=== PATIENT | female | born 1950 | race Caucasian/White ===

== ENCOUNTER 2017-07-17 14:13 | Emergency (ER) | payer MEDICARE ==
[2017-07-17] MEDS ORDERED: predniSONE 20 MG TAB ONE (14:32)
--- NOTE | 2017-07-17 15:50 | RAD ---
CHEST TWO VIEWS: 07/17/17 HISTORY: Cough, asthma, high blood pressure. Heart size is enlarged. A large hiatal hernia is noted. Mediastinum is otherwise unremarkable. The lakshmi ngs are clear of infiltrates. IMPRESSION: Cardiomegaly with large hiatal hernia. POS: RYANH
== END 2017-07-17 15:18 | disposition home or self-care (01) ==
LOC: SCSER 14:13
DX: J06.9 Acute upper respiratory infection, unspecified (principal); J45.909 Unspecified asthma, uncomplicated; E03.9 Hypothyroidism, unspecified; I10 Essential (primary) hypertension; Z79.899 Other long term (current) drug therapy; Z79.51 Long term (current) use of inhaled steroids
CPT/HCPCS: 71046; J7506

== ENCOUNTER 2017-09-08 14:55 | Emergency (ER) | payer MEDICARE ==
[2017-09-08 15:35] LABS: #Basophils 0.1 thou/uL (0.0-0.2); #Eosinphils 0.2 thou/uL (0.0-0.7); #Monocytes 0.6 thou/uL (0.11-0.59); #Neutrophils 3.5 thou/uL (1.40-6.50); %Basophils 0.8 % (0.0-1.0); %Eosinophils 2.8 % (0.0-10.0); %Lymphocytes 31.8 % (21.0-51.0); %Monocytes 9.5 % (0.0-10.0); %Neutrophils 55.1 % (42.0-75.0); Hemoglobin 12.4 g/dL (12.0-16.0); Mean Corpuscular HGB CONC 34.9 g/dL (32.0-36.0); Mean Corpuscular Hemoglobin 34.3 pg (27.0-31.0); Mean Corpuscular Volume 98.1 fL (78.0-98.0); Mean Platelet Volume 9.5 fL (7.4-10.4); Platelet Count 211 thou/uL (130-400); RBC Distribution Width 12.9 % (11.5-14.5); Red Blood Cell (RBC) Count 3.62 mill/uL (4.20-5.40); White Blood Cell (WBC) Count 6.4 thou/uL (4.8-10.8)
[2017-09-08 15:57] LABS: ALT (SGPT) 18 U/L (8-55); AST (SGOT) 23 U/L (5-34); Alkaline Phosphatase 125 U/L (40-150); Anion Gap 14 mmol/L (10-20); BUN (Urea Nitrogen) 20 mg/dL (9.8-20.1); Bilirubin, Total 0.3 mg/dL (0.2-1.2); Calc. Creatinine Clearance 0 mL/min (70-130); Calcium 9.2 mg/dL (7.8-10.44); Carbon Dioxide 29 mmol/L (23-31); Chloride 102 mmol/L (98-107); Estimated GFR-MDRD 72; Glucose 82 mg/dL (80-115); Potassium 3.7 mmol/L (3.5-5.1); Sodium 141 mmol/L (136-145)
[2017-09-08 16:12] LABS: Bilirubin Negative (Negative); Blood, Urine Negative (Negative); Clarity CLEAR (Clear); Glucose, Urine (Dipstick) Negative (Negative); Leukocyte Small (Negative); Nitrite Negative (Negative); Protein, Urine (Dipstick) Negative (Neg-Trace); Specific Gravity, Urine 1.016 (1.002-1.036); Urobilinogen 0.2 mg/dL (0.2-1.0); pH, Urine 6.5 (5.0-9.0)
[2017-09-08 16:13] LABS: Bacteria/HPF None Seen HPF (None Seen); Hyaline Casts/LPF 0-3 HYALINE CAST LPF (0-3 Hyaline); Pathc Cast-AUWi Flag 0.29 (0-2.49); Squamous Epithelial None Seen HPF (0-3); WBC/HPF 0-3 HPF (0-3)
== END 2017-09-08 17:29 | disposition home or self-care (01) ==
LOC: ERS 14:55
DX: K92.2 Gastrointestinal hemorrhage, unspecified (principal); E03.9 Hypothyroidism, unspecified; J45.909 Unspecified asthma, uncomplicated; I10 Essential (primary) hypertension; Z79.899 Other long term (current) drug therapy; Z79.891 Long term (current) use of opiate analgesic
CPT/HCPCS: 36415; 80053; 81003; 81015; 82274; 85025; 86850; 86900; 86901

== ENCOUNTER 2017-09-09 07:20 | Inpatient (IN) | payer MEDICARE ==
[2017-09-09 08:03] LABS: #Eosinphils 0.2 thou/uL (0.0-0.7); #Lymphocytes 1.2 thou/uL (1.20-3.40); #Monocytes 0.5 thou/uL (0.11-0.59); #Neutrophils 3.6 thou/uL (1.40-6.50); %Basophils 0.4 % (0.0-1.0); %Eosinophils 3.4 % (0.0-10.0); %Lymphocytes 22.2 % (21.0-51.0); %Monocytes 8.9 % (0.0-10.0); %Neutrophils 65.1 % (42.0-75.0); Hemoglobin 9.9 g/dL (12.0-16.0); Mean Corpuscular HGB CONC 34.3 g/dL (32.0-36.0); Mean Corpuscular Hemoglobin 33.9 pg (27.0-31.0); Mean Corpuscular Volume 98.6 fL (78.0-98.0); Mean Platelet Volume 9.4 fL (7.4-10.4); Platelet Count 189 thou/uL (130-400); RBC Distribution Width 12.9 % (11.5-14.5); Red Blood Cell (RBC) Count 2.91 mill/uL (4.20-5.40); White Blood Cell (WBC) Count 5.6 thou/uL (4.8-10.8)
[2017-09-09 09:55] LABS: PTT 24.6 SEC (22.9-36.1); Prothrombin Time 13.3 SEC (12.0-14.7)
[2017-09-09 10:33] LABS: Potassium 3.4 mmol/L (3.5-5.1); Sodium 140 mmol/L (136-145)
[2017-09-09 10:34] LABS: Albumin 3.5 g/dL (3.4-4.8); Alkaline Phosphatase 97 U/L (40-150); Anion Gap 9 mmol/L (10-20); BUN (Urea Nitrogen) 17 mg/dL (9.8-20.1); Bilirubin, Total 0.4 mg/dL (0.2-1.2); Calc. Creatinine Clearance 0 mL/min (70-130); Calcium 8.4 mg/dL (7.8-10.44); Carbon Dioxide 31 mmol/L (23-31); Chloride 103 mmol/L (98-107); Estimated GFR-MDRD 83; Globulin 2.3 g/dL (2.4-3.5); Glucose 96 mg/dL (80-115); Protein, Total 5.8 g/dL (5.8-8.1)
[2017-09-09 10:35] LABS: ALT (SGPT) 16 U/L (8-55); AST (SGOT) 17 U/L (5-34); Iron 77 ug/dL (50-170); Iron Binding Capacity, Total 238 mcg/dL (265-497)
[2017-09-09] MEDS ORDERED: Senokot 8.6 MG TAB PO PRN (11:10)
[2017-09-09] MEDS ORDERED: Chloraseptic Spray 180 ml Bottle PO PRN (11:10)
[2017-09-09] MEDS ORDERED: Ondansetron HCl/PF 4 MG/2 ML Vial IVP PRN (11:10)
[2017-09-09] MEDS ORDERED: Loperamide HCl 2 MG CAP PO PRN (11:10)
[2017-09-09] MEDS ORDERED: HYDROcodone/Acetaminophen 5/325 mg Tablet PO PRN (11:10)
[2017-09-09] MEDS ORDERED: Ondansetron ODT 4 MG TAB PO PRN (11:10)
[2017-09-09] MEDS ORDERED: Artificial Tears 18 DROP/0.9 ML EA EYE PRN (11:10)
[2017-09-09] MEDS ORDERED: hydrALAZINE 20 MG/ML VIAL SLOW IVP PRN (11:10)
[2017-09-09] MEDS ORDERED: Albuterol Sulfate 2.5 mg/3 ml Neb NEB PRN (11:10)
[2017-09-09] MEDS ORDERED: Loratadine 10 MG TAB PO PRN (11:10)
[2017-09-09] MEDS ORDERED: Zolpidem Tartrate 5 MG TAB PO PRN (11:10)
[2017-09-09] MEDS ORDERED: Mag-Al 1200 mg/1200 mg/30 ML UDCUP PO PRN (11:10)
[2017-09-09] MEDS ORDERED: Sodium Chloride 0.65% Nasal 44 ML BOT EA NARE PRN (11:10)
[2017-09-09] MEDS ORDERED: Diabetic Tussin 200 MG/10 ML UDCUP PO PRN (11:10)
[2017-09-09] MEDS ORDERED: Milk Of Magnesia 30 ML UDCUP PO PRN (11:10)
[2017-09-09] MEDS ORDERED: Eucerin (Mineral Oil/Petrolatum,White) 30 gm Jar TOP PRN (11:10)
--- NOTE | 2017-09-09 11:51 | RAD ---
PORTABLE CHEST 1 VIEW: DATE: 09/09/17. TIME: 9:41 a.m. HISTORY: Abdominal pain, hematochezia, GI bleeding. History of asthma, hypertension. FINDINGS: Comparison is made with the exam of 01/21/11. The heart is enlarged. The lungs are expanded without lobar consolidation, pneumothorax, josé pulmo nary edema, or pleural effusions. IMPRESSION: Cardiomegaly. POS: SHRAVAN
[2017-09-09] MEDS: Sodium Chloride 0.9% 1,000 ML IV SCH ×3 (12:48→20:34)
--- NOTE | 2017-09-09 12:59 | HP ---
PRIMARY CARE PHYSICIAN: Dr. Jossue Oliveira. REASON FOR ADMISSION: Acute lower gastrointestinal bleed and anemia due to acute blood loss, hypotension. HISTORY OF PRESENT ILLNESS: A 67-year-old female who has underlying history of peptic ulcer disease who presented to emergency room with complaint of hematochezia. The patient reports that she had bright red blood per rectum yesterday morning and that is why she came to the emergency room in the afternoon time. She was discharged home. The patient reports that yesterday morning she was having bright red blood per rectum. She did not have any associated abdominal pain. She did not have any nausea, vomiting, or hematemesis. She did not have any black tarry stool. She had several times scant amount of blood through the wiping. Yesterday when she came to emergency room in afternoon time, she was hemodynamically stable. She had blood test done and her hemoglobin was 12.4 and she was discharged home and advised to make appointment with Dr. Le today. The patient was having ongoing hematochezia during night time. This morning, she was feeling dizzy and weak and that is why she was not able to make appointment with GI, but decided to come to the emergency room for evaluation. Today in the emergency room, her hemoglobin dropped to 9.9 and subsequently 9. Her blood pressure was also on lower side. She was feeling weak and that is why we decided to admit this patient in hospital. She denies any weight loss. She denies any fever or chills. She denies any antibiotic exposure. She had similar rectal bleed 10 years ago, at that time colonoscopy was normal. The patient does have history of chronic migraine type of headache and she is taking Excedrin every day basis. For the last couple of days, she also took Mobic for a couple of days. She denies any epigastric pain. She denies any nausea or vomiting. She did not have any syncope. She did not have any chest pain or palpitations. REVIEW OF SYSTEMS: Please see my HPI for pertinent positive and negative. All other review of system reviewed and negative except as mentioned in the HPI. Constitutional: Weight loss or gain, ability to conduct usual activities. Skin: Rash, itching. Eyes: Double vision, pain. ENT/Mouth: Nose bleeding, neck stiffness, pain, tenderness. Cardiovascular: Palpitations, dyspnea on exertion, orthopnea. Respiratory: Shortness of breath, wheezing, cough, hemoptysis, fever or night sweats. Gastrointestinal: Poor appetite, abdominal pain, heartburn, nausea, vomiting, constipation, or diarrhea. Genitourinary: Urgency, frequency, dysuria, nocturia. Musculoskeletal: Pain, swelling. Neurologic/Psychiatric: Anxiety, depression. Allergy/Immunologic: Skin rash, bleeding tendency. PAST MEDICAL HISTORY: Hypothyroidism, hypertension, mild intermittent asthma, obesity. PAST PSYCHIATRIC HISTORY: Anxiety and depression. PAST SURGICAL HISTORY: Bilateral knee replacement, left hip replacement, breast biopsy, hernia repair with mesh in 2001, cholecystectomy, colonoscopy 10 years ago. SOCIAL HISTORY: The patient is living at home with family. No history of tobacco, alcohol or illicit drug abuse. FAMILY HISTORY: Positive for heart disease among several family members, but no family history of colon cancer, stroke, other type of cancer. ALLERGIES: No known drug allergy. CURRENT HOME MEDICATIONS: Synthroid 100 mcg p.o. daily, lisinopril 20 mg p.o. b.i.d., hydrochlorothiazide 25 mg p.o. daily, Lasix 20 mg twice daily, Prozac 20 mg p.o. daily, amitriptyline 50 mg p.o. daily, Klor-Con 10 mEq p.o. daily, Advair 1 inhalation b.i.d., Ventolin 2 puffs inhalation b.i.d., Protonix 40 mg p.o. daily. EMERGENCY ROOM COURSE: The patient has received IV fluid. PHYSICAL EXAMINATION: VITAL SIGNS: On arrival, blood pressure lowest 97/45, pulse 80, respiratory rate 13, temperature 98.2, saturation 95% on room air, weight 108.8 kilograms. GENERAL: The patient is currently alert, awake, no obvious acute distress. HEAD: Normocephalic, atraumatic. EYES: Pupils round, reactive to light. Extraocular muscle intact. ENT: Oropharynx within normal limits. Moist mucous membranes. No oral lesion , no pharyngeal erythema, no exudate. NECK: Supple, no JVD, no thyromegaly, no carotid bruit. LUNGS: Clear to auscultation without any rhonchi or rales. CARDIAC: S1, S2 regular without any murmur. ABDOMEN: The patient does not have any epigastric tenderness, no peritoneal sign, no guarding, no rigidity, no rebound, no suprapubic tenderness. RECTAL: Examination done in the emergency room showed guaiac positive stool. BACK: Unremarkable. No CVA tenderness. EXTREMITIES: Upper extremity: Passive movement of all joints are normal. Lower extremity: No edema. Good peripheral pulsation. SKIN: No skin rash. HEMATOLOGICAL: No lymphadenopathy. PSYCHIATRIC: Normal affect. NEUROLOGIC: The patient is alert, oriented x3. Cranial nerves II-XII intact. Motor and sensation within normal limits. No focal neurological deficit noted. SIGNIFICANT LABORATORY DATA: EKG showing normal sinus rhythm, occasional premature ventricular complexes noted. Chest x-ray based on my review, no acute cardiopulmonary process. CBC: WBC 5.6, hemoglobin 9.9 which is dropped from 12.4 yesterday and subsequently hemoglobin 9.0. INR 1.0. BMP: Sodium 140 , potassium 3.4, chloride 103, carbon dioxide 31, anion gap 9, BUN 17, creatinine 0.70, glucose 96, calcium 8.4. LFT: AST 17, ALT 16, alkaline phosphatase 97, albumin 3.5. Iron 77, TIBC 238, ferritin 27.90. ASSESSMENT AND PLAN: 1. Acute gastrointestinal bleed. The patient has bright red blood per rectum with maroon color blood suspecting lower gastrointestinal bleed. She has painless bleeding and that is why we are suspecting diverticular bleed. Her bleeding almost stopped at this point, but she is still hypotensive and her hemoglobin dropped 3 grams from yesterday. She is relatively hypotensive. Normally, she sees her blood pressure runs in 150s, but currently running in 100s. We are also suspecting peptic ulcer disease possible duodenal ulcer bleeding given the patient on chronic use of Excedrin as well as recent use of Mobic. This patient may need upper and lower endoscopy for further evaluation. We will consult telephone lineworker. We will treat her with Protonix 40 mg IV twice daily IV fluid for relative hypotension. We will only give her clear liquid diet today. If the colonoscopy is planned, then the patient will need colon preparation today and possibly procedure tomorrow. This patient does not have any epigastric abdominal pain and she does not have any nausea or vomiting , so suspicious for upper GI bleed is also very little. We will monitor H&H while in hospital. We will keep as a full admission. If her hemoglobin drops below 8, then we will consider transfusion. 2. Anemia due to acute blood loss. We will monitor H&H and as mentioned above , if the patient is hypotensive and her hemoglobin is less than 8, then we will consider blood transfusion as patient is mildly symptomatic. 3. Hypotension, likely due to blood loss from gastrointestinal bleed. We will continue with IV fluid. We will monitor closely. If her blood pressure remains low, then either she will need volume replacement aggressively versus blood product versus transferred to telemetry/IMCU for close monitoring. 4. Hypothyroidism. We will continue Synthroid 100 mcg p.o. daily. 5. Hypokalemia. We will replace potassium chloride 20 mEq IV one-time dose. 6. Anxiety and depression. We will continue Prozac 20 mg p.o. daily, amitriptyline 50 mg p.o. at bedtime. 7. Asthma without any exacerbation. Continue Ventolin nebulization q.6 hourly p.r.n., Dulera 1 puff inhalation b.i.d. 8. Gastroesophageal reflux disease, hiatal hernia with a history of peptic ulcer disease. We are giving her Protonix 40 mg IV b.i.d. 9. Hypertension history, but currently low blood pressure that is why we will hold on antihypertensive medication for now. 10. Deep venous thrombosis prophylaxis. No Lovenox because of bleeding. 11. Gastrointestinal prophylaxis. The patient is already on Protonix therapy. 12. Code status: The patient is FULL CODE. The patient does not have any surrogate decision maker. Disposition plan based on clinical course. We are expecting patient's stay in hospital more than 2 midnights. Plan of care discussed with the patient in detail. LUPILLOD
[2017-09-09] MEDS ORDERED: Potassium Chloride 10 MEQ/100 ML PREMIX BAG IVPB SCH (13:00)
[2017-09-09 13:18] VITALS: BMI 38.7
[2017-09-09 17:48] LABS: Hemoglobin 9.6 g/dL (12.0-16.0)
[2017-09-09] MEDS: Mometasone/Formoterol 120 PUFF INHALER INH SCH (18:40)
[2017-09-09] MEDS ORDERED: GoLYTELY 4,000 ml Bottle PO SCH (20:00)
[2017-09-09] MEDS: Fish Oil 1,000 MG CAP PO SCH (20:34)
[2017-09-09] MEDS: Potassium Chloride 20 MEQ TAB PO SCH (20:34)
[2017-09-09] MEDS: Amitriptyline HCl 25 MG TAB PO SCH (20:35)
[2017-09-09] MEDS: Pantoprazole 40 MG VIAL IVP SCH (20:35)
[2017-09-09] MEDS: Levothyroxine Sodium 100 MCG TAB PO SCH (20:38)
[2017-09-09] MEDS ORDERED: Non-Formulary Item 1 EACH (Amitriptyline Hcl [Elavil] 50 MG) PO SCH (21:00)
--- NOTE | 2017-09-10 04:33 | CON ---
DATE OF SERVICE: 09/09/2017 REASON FOR CONSULTATION: GI bleeding. HISTORY OF PRESENT ILLNESS: Ms. Cowan is a pleasant 67-year-old female who [facility]. She actually came to the hospital yesterday after she had about 2-3 episode s of rectal bleeding at home. She notes that these were red and sometimes maroon, a little bit of cl ot. In the emergency room apparently her vital signs were stable and her hemoglobin was 12.4. Her b aseline is between 13 and 12 from April of this year and August of last year, respectively. Her BUN an d creatinine yesterday were 20 and 0.7. She was discharged home to follow up with PCP and referred t o see Dr. Campos Le who was clinical services consultant yesterday. However, this morning, she woke up and had a bloody stool again and felt weak and came to the emergency room. In the emergency room today, her hemoglobi n was 9 and her blood pressure was 101/50 and pulse was 70. Rectal examination revealed some dark re d blood in her stool. Therefore, at this time, they decide to go ahead and admit her. Presently sta aguilar she has only had 2 stools today, both of which were maroonish red to dark. Her and her d iffer on whether it was black or not, but it seems that they settle on more of a maroon color. She h as had no associated pain with this. She said she had an episode of bleeding about 10 years ago with bright red blood per rectum. She had a colonoscopy done, which was normal and she states she had a colonoscopy may be 5 years ago at [facility], which was normal. She has had no nausea or vomiti ng. She does use Meloxicam and used few last week; however, she is on Protonix daily and has been fo r several years. REVIEW OF SYSTEMS: Negative for syncope, dizziness, passing out. Neurologic: Negative. Skin: No rashes or itching. Eyes: No double vision or change. ENT: No nosebleeds. No dysphagia or odynoph agia or throat pain. Cardiovascular: No palpitations, dyspnea on exertion, orthopnea or dyspnea. R espiratory: No shortness of breath, coughing. Gastrointestinal: Poor appetite. Otherwise review o f systems per HPI. : Negative urinary frequency, or urgency. Musculoskeletal: No pain, swelling . Neurologic: No anxiety, depression, headaches. ALLERGIES: None. PAST MEDICAL HISTORY: Hypothyroidism, hypertension, mild intermittent asthma, obesity. PSYCHIATRIC HISTORY: Anxiety and depression. PAST SURGICAL HISTORY: Bilateral knee replacement, left hip replacement, ankle surgery, breast biops y, benign few years ago, hernia mesh repair in abdomen, cholecystectomy with appendectomy several yea rs ago, colonoscopy 10 years ago and 5 years ago. SOCIAL HISTORY: Patient lives at home with family. Her is at the bedside. She does not smo ke, drink or use drugs. FAMILY HISTORY: Negative for colorectal cancer or liver disease. ALLERGIES: None known. MEDICATIONS: Synthroid 100 mcg daily, lisinopril (05:12) mg b.i.d., hydrochlorothiazide 25 mg d aily, Lasix 20 mg b.i.d., Prozac 20 mg daily, amitriptyline 50 mg daily, Klor-Con 10 mEq daily, Advai r b.i.d., Ventolin b.i.d., Protonix 40 mg p.o. daily. PRESENT MEDICATIONS: Tylenol, Maalox, Ventolin, Elavil, vitamin C, iron, fish oil, fluoxetine, guaif enesin, hydralazine, hydrocodone, levothyroxine, loperamide p.r.n., magnesium hydroxide p.r.n., torres l saline 100 an hour, Protonix 40 IV q.12. PHYSICAL EXAMINATION: GENERAL: Patient is resting comfortably in bed. She is in no distress. VITAL SIGNS: Temperature is 98.7, pulse 80, blood pressure 133/57. LUNGS: Clear. HEENT: Oropharynx without lesions. GENERAL: She is alert and oriented to person, place and time. She is in no distress. HEENT: Conjunctiva and sclerae clear. Oropharynx without lesions. NECK: Supple, without adenopathy. No adenopathy in the anterior cervical lymph node chains or in t he supraclavicular spaces. LUNGS: Clear to auscultation. Good breath sounds. HEART: Regular rate and rhythm without murmurs. ABDOMEN: Soft, nontender, without rebound or guarding. There is no borborygmi. RECTAL: Reveals some old maroon stool, which seems to be solidifying. There are no clots or fresh r ed blood. There is no melena. EXTREMITIES: No clubbing, cyanosis or edema. There are scars over the knees. LABORATORY DATA: Sodium 140, potassium 3.4, BUN and creatinine are 17 and 0.7. Iron was 230 on admi ssion. Ferritin was 27, AST and ALT are 17 and 19, protein was 5.8, albumin 3.5. B12 was 76 on 05/31 016. TSH was 28 on 08/17/2017. Chest x-ray showed mild cardiomegaly. ASSESSMENT: Gastrointestinal bleeding. This seems to be lower. She has been using some NSAID, so t his must be a risk factor for bleeding which she has been on a PPI, which should give her prophylaxis for gastric ulcers any way or in even duodenal ulcers. I suspect this may be a colonic bleeding div erticular would be fit with her age group, but she states that she did not have any diverticula on pr evious colonoscopies. PLAN: 1. Continue serial H&Hs. 2. Continue IV fluids. 3. Bowel prep this evening for a colonoscopy with EGD tomorrow for GI bleeding with significant sign s of hemorrhage and hemodynamic instability on admission. If she drops hemoglobin lower than 8, she will need transfusion: 4. We will stop oral iron. This will interfere with her bowel prep, make colonoscopy visualization difficult.
[2017-09-10 05:49] LABS: #Eosinphils 0.1 thou/uL (0.0-0.7); #Lymphocytes 2.1 thou/uL (1.20-3.40); #Monocytes 0.5 thou/uL (0.11-0.59); %Basophils 0.7 % (0.0-1.0); %Eosinophils 2.1 % (0.0-10.0); %Lymphocytes 36.7 % (21.0-51.0); %Neutrophils 51.6 % (42.0-75.0); Hemoglobin 8.8 g/dL (12.0-16.0); Mean Corpuscular HGB CONC 34.1 g/dL (32.0-36.0); Mean Corpuscular Hemoglobin 33.7 pg (27.0-31.0); Mean Corpuscular Volume 98.8 fL (78.0-98.0); Mean Platelet Volume 9.6 fL (7.4-10.4); Platelet Count 195 thou/uL (130-400); Red Blood Cell (RBC) Count 2.61 mill/uL (4.20-5.40); White Blood Cell (WBC) Count 5.8 thou/uL (4.8-10.8)
[2017-09-10 05:57] LABS: Anion Gap 8 mmol/L (10-20); BUN (Urea Nitrogen) 8 mg/dL (9.8-20.1); Calc. Creatinine Clearance 157 mL/min (70-130); Calcium 8.3 mg/dL (7.8-10.44); Carbon Dioxide 31 mmol/L (23-31); Chloride 106 mmol/L (98-107); Estimated GFR-MDRD Greater than 90; Glucose 103 mg/dL (80-115); Potassium 3.4 mmol/L (3.5-5.1); Sodium 142 mmol/L (136-145)
[2017-09-10] MEDS: Mometasone/Formoterol 120 PUFF INHALER INH SCH ×2 (06:28→17:56)
[2017-09-10] MEDS: Potassium Chloride 10 MEQ TAB PO SCH (08:00)
[2017-09-10] MEDS ORDERED: Potassium Chloride 20 MEQ in Premix Bag 1 BAG IVPB SCH (08:00)
[2017-09-10] MEDS ORDERED: Non-Formulary Item 1 EACH (Ferrous Sulfate [Iron] 325 MG) PO SCH (09:00)
[2017-09-10] MEDS ORDERED: Non-Formulary Item 1 EACH (Multivitamin [Multivitamins] 1 CAP) PO SCH (09:00)
[2017-09-10] MEDS ORDERED: Pantoprazole 40 MG VIAL IVP SCH (09:00)
[2017-09-10] MEDS: Ascorbic Acid 500 mg Chewable Tablet PO SCH (09:00)
[2017-09-10] MEDS: Multivit, Therapeutic 1 TAB PO SCH (09:00)
[2017-09-10] MEDS: FLUoxetine HCl 20 MG/5 ML UDCUP PO SCH (09:00)
[2017-09-10] MEDS ORDERED: CALCIUM CITRATE 1000 MG PO SCH (09:00)
[2017-09-10] MEDS ORDERED: Ferrous Sulfate 325 MG TAB PO SCH (09:00)
[2017-09-10] MEDS: Calcium Citrate 950 MG TAB PO SCH (09:00)
[2017-09-10] MEDS: Potassium Chloride 20 MEQ TAB PO SCH ×2 (09:00→22:38)
--- NOTE | 2017-09-10 09:43 | PDOC.PN ---
- Subjective Encounter Start Date: 09/10/17 Encounter Start Time: 07:00 -: old records requested/rev pt is getting preparation for colonoscopy, no further bleeding, no epigastric pain - Objective MAR Reviewed: Yes Vital Signs & Weight: Vital Signs (12 hours) Temp Pulse Resp BP Pulse Ox 09/10/17 07:23 98.1 F 77 18 143/66 H 97 09/10/17 04:00 98.6 F 72 18 117/66 95 09/10/17 00:00 98.2 F 89 20 125/70 96 I&O: 09/09/17 09/10/17 09/11/17 06:59 06:59 06:59 Intake Total 3640 Balance 3640 Result Diagrams: 09/10/17 05:21 09/10/17 05:21 Phys Exam - Physical Examination Constitutional: NAD HEENT: PERRLA, moist MMs, sclera anicteric Neck: no JVD, supple Respiratory: no wheezing, no rales, no rhonchi Cardiovascular: RRR, no significant murmur, no rub Gastrointestinal: soft, non-tender, no distention, positive bowel sounds Musculoskeletal: no edema, pulses present Neurological: non-focal, normal sensation, moves all 4 limbs Lymphatic: no nodes Psychiatric: normal affect, A&O x 3 Skin: no rash, normal turgor Dx/Plan (1) Acute GI bleeding Code(s): K92.2 - GASTROINTESTINAL HEMORRHAGE, UNSPECIFIED Status: Acute (2) Anemia due to acute blood loss Code(s): D62 - ACUTE POSTHEMORRHAGIC ANEMIA Status: Acute (3) Hypokalemia Code(s): E87.6 - HYPOKALEMIA Status: Acute (4) Hypotension Status: Acute (5) Anxiety and depression Code(s): F41.9 - ANXIETY DISORDER, UNSPECIFIED; F32.9 - MAJOR DEPRESSIVE DISORDER, SINGLE EPISODE, UNSPECIFIED Status: Chronic (6) Asthma Code(s): J45.909 - UNSPECIFIED ASTHMA, UNCOMPLICATED Status: Chronic (7) Hiatal hernia Code(s): K44.9 - DIAPHRAGMATIC HERNIA WITHOUT OBSTRUCTION OR GANGRENE Status: Chronic (8) Hypertension Code(s): I10 - ESSENTIAL (PRIMARY) HYPERTENSION Status: Chronic (9) Hypothyroidism Code(s): E03.9 - HYPOTHYROIDISM, UNSPECIFIED Status: Chronic (10) VAL on CPAP Code(s): G47.33 - OBSTRUCTIVE SLEEP APNEA (ADULT) (PEDIATRIC); Z99.89 - DEPENDENCE ON OTHER ENABLING MACHINES AND DEVICES Status: Chronic (11) Obesity (BMI 30-39.9) Code(s): E66.9 - OBESITY, UNSPECIFIED Status: Chronic (12) Osteoarthritis Code(s): M19.90 - UNSPECIFIED OSTEOARTHRITIS, UNSPECIFIED SITE Status: Chronic (13) PUD (peptic ulcer disease) Code(s): K27.9 - PEPTIC ULC, SITE UNSP, UNSP AC OR CHR, W/O HEMOR OR PERF Status: Chronic - Plan cont current plan of care * today plan for EGD and colonoscopy * medication reviewed as below * symptomatic treatment * repeat labs tomorrow * dc ivf after procedure * start diet after procedure * replace potassium. Review of Systems - Review of Systems Constitutional: negative: fever, chills, sweats, weakness, malaise, other ENT: negative: Ear Pain, Ear Discharge, Nose Pain, Nose Discharge, Nose Congestion, Mouth Pain, Mouth Swelling, Throat Pain, Throat Swelling, Other Respiratory: negative: Cough, Dry, Shortness of Breath, Hemoptysis, SOB with Excertion, Pleuritic Pain, Sputum, Wheezing Cardiovascular: negative: chest pain, palpitations, orthopnea, paroxysmal nocturnal dyspnea, edema, light headedness, other Gastrointestinal: negative: Nausea, Vomiting, Abdominal Pain, Diarrhea, Constipation, Melena, Hematochezia, Other Genitourinary: negative: Dysuria, Frequency, Incontinence, Hematuria, Retention , Other Musculoskeletal: negative: Neck Pain, Shoulder Pain, Arm Pain, Back Pain, Hand Pain, Leg Pain, Foot Pain, Other Skin: negative: Rash, Lesions, Yusef, Bruising, Other - Medications/Allergies Allergies/Adverse Reactions: Allergies Allergy/AdvReac Type Severity Reaction Status Date / Time No Known Allergies Allergy Verified 03/13/15 09:24 Medications: Current Medications Acetaminophen (Tylenol) 650 mg PO Q4H PRN PRN Reason: Headache/Fever or Pain Hydrocodone Bitart/Acetaminophen (Onia 5/325) 1 tab PO Q4H PRN PRN Reason: Moderate Pain (4-6) Al Hydroxide/Mg Hydroxide (Maalox) 30 ml PO Q6H PRN PRN Reason: Heartburn or Indigestion Albuterol Sulfate (Ventolin) 2.5 mg NEB [id number] PRN PRN Reason: Wheezing Amitriptyline HCl (Elavil) 50 mg PO [facility] Last Admin: 09/09/17 20:35 Dose: 50 mg Artificial Tears (Tears Naturale) 0 drop EA EYE PRN PRN PRN Reason: Dry Eyes Ascorbic Acid (Vitamin C) 500 mg PO DAILY [facility] Calcium Citrate (Calcium Citrate) 950 mg PO DAILY [facility] Fish Oil (Fish Oil) 1,000 mg PO [facility] Last Admin: 09/09/17 20:34 Dose: 1,000 mg Fluoxetine HCl (Prozac Oral Soln) 20 mg PO DAILY [facility] Guaifenesin (Robitussin Sf) 200 mg PO Q4H PRN PRN Reason: Cough Hydralazine HCl (Apresoline) 10 mg SLOW IVP Q4H PRN PRN Reason: Systolic BP > 180 Sodium Chloride (Normal Saline 0.9%) 1,000 mls @ 100 mls/hr IV .Q10H [facility] Last Admin: 09/09/17 20:34 Dose: 1,000 mls Potassium Chloride 20 meq/ (Device) 100 mls @ 50 mls/hr IVPB 0800 [facility] Stop: 09/10/17 09:59 Last Admin: 09/10/17 09:05 Dose: 100 mls Levothyroxine Sodium (Synthroid) 100 mcg PO 0600 [facility] Last Admin: 09/09/17 20:38 Dose: 100 mcg Loperamide HCl (Imodium) 2 mg PO PRN PRN PRN Reason: Diarrhea/Loose Stools Loratadine (Claritin) 10 mg PO DAILYPRN PRN PRN Reason: Sinus Symptoms Magnesium Hydroxide (Milk Of Magnesium) 30 ml PO DAILYPRN PRN PRN Reason: Constipation Mineral Oil/White Petrolatum (Eucerin Cream) 0 gm TOP BIDPRN PRN PRN Reason: Dry Skin Mometasone Furoate/Formoterol Fumar (Dulera 100 Mcg/5 Mcg Inhaler) 1 puff INH BID-RT [facility] Last Admin: 09/10/17 06:28 Dose: 1 puff Multivitamins (Theragran) 1 tab PO DAILY [facility] Ondansetron HCl (Zofran Odt) 4 mg PO Q6H PRN PRN Reason: Nausea/Vomiting Ondansetron HCl (Zofran) 4 mg IVP Q6H PRN PRN Reason: Nausea/Vomiting Pantoprazole Sodium (Protonix) 40 mg IVP Q12HR [facility] Last Admin: 09/09/17 20:35 Dose: 40 mg Phenol (Chloraseptic [place] 180 Ml Bot) 0 ml PO PRN PRN PRN Reason: Sore Throat Polyethylene Glycol/Electrolytes (Golytely) 4,000 ml PO ONE [facility] Stop: 09/10/17 20:01 Potassium Chloride (Klor-Con 10) 10 meq PO QAM-WM [facility] Potassium Chloride (K-Dur) 20 meq PO BID [facility] Last Admin: 09/09/17 20:34 Dose: 20 meq Senna (Senokot) 2 tab PO HSPRN PRN PRN Reason: Constipation Sodium Chloride ([place] Nasal [place] 0.65%) 0 ml EA NARE QIDPRN PRN PRN Reason: Nasal Congestion Sodium Chloride (Flush - Normal Saline) 10 ml IVF Q12HR [facility] Last Admin: 09/10/17 09:06 Dose: 10 ml Sodium Chloride (Flush - Normal Saline) 10 ml IVF PRN PRN PRN Reason: Saline Flush Sodium Chloride (Flush - Normal Saline) 10 ml IVF PRN PRN PRN Reason: Saline Flush Sodium Chloride (Flush - Normal Saline) 10 ml IVF PRN PRN PRN Reason: Saline Flush Zolpidem Tartrate (Ambien) 5 mg PO HSPRN PRN PRN Reason: Insomnia
[2017-09-10] MEDS: Pantoprazole 40 MG VIAL IVP SCH ×2 (09:56→22:39)
[2017-09-10] MEDS ORDERED: Ondansetron HCl/PF 4 MG/2 ML Vial IVP PRN (11:36)
[2017-09-10] MEDS ORDERED: Promethazine HCl 25 MG/ML VIAL IM PRN (11:36)
[2017-09-10] MEDS ORDERED: Morphine Sulfate 2 MG/ML SYRINGE SLOW IVP PRN (11:36)
[2017-09-10] MEDS ORDERED: Promethazine HCl 25 MG/ML VIAL SLOW IVP PRN (11:36)
[2017-09-10] MEDS ORDERED: Lidocaine 1% PF 5 ML VIAL ONE (14:14)
[2017-09-10] MEDS ORDERED: PROPOFOL 200 MG/20 ML VIAL ONE (14:14)
[2017-09-10] MEDS: Sodium Chloride 0.9% 1,000 ML IV SCH (15:22)
--- NOTE | 2017-09-10 19:19 | OP ---
DATE OF PROCEDURE: 09/10/2017 PREOPERATIVE DIAGNOSES: 1. Gastrointestinal bleed of unclear etiology. 2. Drop in hemoglobin from baseline of 12 and 13, down to 8.8, red to maroon bleeding. POSTOPERATIVE DIAGNOSES: 1. 7 cm hiatal hernia, sliding. No Cedric's ulcerations, erosions from bleeding site. Other saavedra, normal esophagogastroduodenoscopy. 2. Colonoscopy notable for diffuse diverticulosis coli throughout the colon with no active bleeding identified or old blood in the colon. 3. Bleeding was likely diverticular in nature, resolved. RECOMMENDATIONS: 1. Full liquid diet. If patient tolerates the diet, can advance to regular diet, low residue tomorr ow and if no bleeding, discharge her tomorrow. 2. Avoid NSAIDs. ANESTHESIA: TIVA. PROCEDURE IN DETAIL: After the patient informed the risks, benefits, possible complications of endos copy including perforation, bleeding, reactions to medication and aspiration, informed consent was ob tained. The patient was brought to endoscopy suite where she was sedated in a usual fashion. Once s he was comfortable, a bite block was placed in the incisor orifice. The endoscope was advanced throu gh the esophagus, stomach and second and third portion of duodenum and slowly removed. There was goo d visualization of mucosa. There is no evidence of bleeding sites identified. There was no old bloo d or coffee-ground like material in the stomach. There was a similar large hiatal hernia with hiatus at 40 cm in the proximal aspect of the gastric folds at about 32 cm. There is no evidence of Felix n's ulcers, erosions in this. The antrum was normal. Incisura was normal. Greater and lesser curve s was normal. The esophagus was otherwise normal. The scope was removed. The patient was turned in the room and a rectal examination was performed. There are no signs of ble eding. The endoscope was advanced in the anal canal, through the colon to the cecum which was identi fied by ileocecal valve and appendiceal orifice. The ileum was entered and found to be normal, just clear bile coming down. The remainder of the colon was normal except for diverticulosis scattered th roughout the colon. There were no active bleeding sites or inflamed diverticula noted. Retroflexed views in the rectum were normal. The scope was returned to forward position and removed.
[2017-09-10] MEDS: Fish Oil 1,000 MG CAP PO SCH (22:38)
[2017-09-10] MEDS: Amitriptyline HCl 25 MG TAB PO SCH (22:39)
[2017-09-11 04:29] LABS: #Basophils 0.1 thou/uL (0.0-0.2); #Eosinphils 0.2 thou/uL (0.0-0.7); #Lymphocytes 2.3 thou/uL (1.20-3.40); #Monocytes 0.6 thou/uL (0.11-0.59); #Neutrophils 2.4 thou/uL (1.40-6.50); %Basophils 1.1 % (0.0-1.0); %Eosinophils 2.9 % (0.0-10.0); %Lymphocytes 41.7 % (21.0-51.0); %Monocytes 10.3 % (0.0-10.0); Hemoglobin 6.9 g/dL (12.0-16.0); Mean Corpuscular HGB CONC 35.7 g/dL (32.0-36.0); Mean Corpuscular Hemoglobin 35.4 pg (27.0-31.0); Mean Corpuscular Volume 99.2 fL (78.0-98.0); Platelet Count 157 thou/uL (130-400); Red Blood Cell (RBC) Count 1.94 mill/uL (4.20-5.40); White Blood Cell (WBC) Count 5.5 thou/uL (4.8-10.8)
[2017-09-11 04:32] LABS: Anion Gap 7 mmol/L (10-20); BUN (Urea Nitrogen) 6 mg/dL (9.8-20.1); Calc. Creatinine Clearance 157 mL/min (70-130); Calcium 7.4 mg/dL (7.8-10.44); Carbon Dioxide 29 mmol/L (23-31); Chloride 110 mmol/L (98-107); Estimated GFR-MDRD Greater than 90; Glucose 87 mg/dL (80-115); Sodium 143 mmol/L (136-145)
[2017-09-11 04:37] LABS: Potassium 2.9 mmol/L (3.5-5.1)
[2017-09-11] MEDS ORDERED: Potassium Chloride 20 MEQ TAB PO SCH (06:15)
[2017-09-11] MEDS ORDERED: Potassium Chloride 20 MEQ in Premix Bag 1 BAG IVPB SCH (06:30)
[2017-09-11 06:31] LABS: Magnesium 1.8 mg/dL (1.6-2.6); Phosphorus 3.1 mg/dL (2.3-4.7)
[2017-09-11] MEDS: Acetaminophen 325 MG TAB PO PRN (08:35)
[2017-09-11] MEDS: Levothyroxine Sodium 100 MCG TAB PO SCH (08:36)
[2017-09-11] MEDS: Potassium Chloride 10 MEQ TAB PO SCH (08:48)
[2017-09-11] MEDS: Multivit, Therapeutic 1 TAB PO SCH (08:48)
[2017-09-11] MEDS: Ascorbic Acid 500 mg Chewable Tablet PO SCH (08:49)
[2017-09-11] MEDS: Pantoprazole 40 MG VIAL IVP SCH ×2 (08:49→21:55)
[2017-09-11] MEDS: Potassium Chloride 20 MEQ TAB PO SCH ×2 (08:49→21:56)
[2017-09-11] MEDS: Mometasone/Formoterol 120 PUFF INHALER INH SCH ×2 (08:50→18:49)
[2017-09-11] MEDS: FLUoxetine HCl 20 MG/5 ML UDCUP PO SCH (08:51)
--- NOTE | 2017-09-11 10:03 | PDOC.PN ---
- Subjective Encounter Start Date: 09/11/17 Encounter Start Time: 07:00 last night she had bleeding again, her H & H dropped, no chest pain, no dizziness - Objective MAR Reviewed: Yes Vital Signs & Weight: Vital Signs (12 hours) Temp Pulse Resp BP Pulse Ox 09/11/17 08:50 75 12 09/11/17 07:52 98.1 F 75 18 132/65 94 L 09/11/17 00:00 98.3 F 89 18 149/69 H 96 I&O: 09/10/17 09/11/17 09/12/17 06:59 06:59 06:59 Intake Total 3640 1680 Balance 3640 1680 Result Diagrams: 09/11/17 03:51 09/11/17 03:51 Phys Exam - Physical Examination Constitutional: NAD HEENT: PERRLA, moist MMs, sclera anicteric Neck: no JVD, supple Respiratory: no wheezing, no rales, no rhonchi Cardiovascular: RRR, no significant murmur, no rub Gastrointestinal: soft, non-tender, no distention, positive bowel sounds Musculoskeletal: no edema, pulses present Neurological: non-focal, normal sensation, moves all 4 limbs Lymphatic: no nodes Psychiatric: normal affect, A&O x 3 Skin: no rash, normal turgor Dx/Plan (1) Acute GI bleeding Code(s): K92.2 - GASTROINTESTINAL HEMORRHAGE, UNSPECIFIED Status: Acute (2) Anemia due to acute blood loss Code(s): D62 - ACUTE POSTHEMORRHAGIC ANEMIA Status: Acute (3) Hypokalemia Code(s): E87.6 - HYPOKALEMIA Status: Acute (4) Hypotension Status: Acute (5) Anxiety and depression Code(s): F41.9 - ANXIETY DISORDER, UNSPECIFIED; F32.9 - MAJOR DEPRESSIVE DISORDER, SINGLE EPISODE, UNSPECIFIED Status: Chronic (6) Asthma Code(s): J45.909 - UNSPECIFIED ASTHMA, UNCOMPLICATED Status: Chronic (7) Hiatal hernia Code(s): K44.9 - DIAPHRAGMATIC HERNIA WITHOUT OBSTRUCTION OR GANGRENE Status: Chronic (8) Hypertension Code(s): I10 - ESSENTIAL (PRIMARY) HYPERTENSION Status: Chronic (9) Hypothyroidism Code(s): E03.9 - HYPOTHYROIDISM, UNSPECIFIED Status: Chronic (10) VAL on CPAP Code(s): G47.33 - OBSTRUCTIVE SLEEP APNEA (ADULT) (PEDIATRIC); Z99.89 - DEPENDENCE ON OTHER ENABLING MACHINES AND DEVICES Status: Chronic (11) Obesity (BMI 30-39.9) Code(s): E66.9 - OBESITY, UNSPECIFIED Status: Chronic (12) Osteoarthritis Code(s): M19.90 - UNSPECIFIED OSTEOARTHRITIS, UNSPECIFIED SITE Status: Chronic (13) PUD (peptic ulcer disease) Code(s): K27.9 - PEPTIC ULC, SITE UNSP, UNSP AC OR CHR, W/O HEMOR OR PERF Status: Chronic - Plan cont current plan of care, plan discussed w/ family * replace potassium * transfuse 2 unit PRBC * RBC tagged scan * discussed with * continue clear liquid * repeat labs tomorrow Review of Systems - Review of Systems Eyes: negative: Pain, Vision Change, Conjunctivae Inflammation, Eyelid Inflammation, Redness, Other ENT: negative: Ear Pain, Ear Discharge, Nose Pain, Nose Discharge, Nose Congestion, Mouth Pain, Mouth Swelling, Throat Pain, Throat Swelling, Other Respiratory: negative: Cough, Dry, Shortness of Breath, Hemoptysis, SOB with Excertion, Pleuritic Pain, Sputum, Wheezing Cardiovascular: negative: chest pain, palpitations, orthopnea, paroxysmal nocturnal dyspnea, edema, light headedness, other Gastrointestinal: Hematochezia. negative: Nausea, Vomiting, Abdominal Pain, Diarrhea, Constipation, Melena, Other Genitourinary: negative: Dysuria, Frequency, Incontinence, Hematuria, Retention , Other Musculoskeletal: negative: Neck Pain, Shoulder Pain, Arm Pain, Back Pain, Hand Pain, Leg Pain, Foot Pain, Other Skin: negative: Rash, Lesions, Yusef, Bruising, Other - Medications/Allergies Allergies/Adverse Reactions: Allergies Allergy/AdvReac Type Severity Reaction Status Date / Time No Known Allergies Allergy Verified 03/13/15 09:24 Medications: Current Medications Acetaminophen (Tylenol) 650 mg PO Q4H PRN PRN Reason: Headache/Fever or Pain Last Admin: 09/11/17 08:35 Dose: 650 mg Hydrocodone Bitart/Acetaminophen ([place] 5/325) 1 tab PO Q4H PRN PRN Reason: Moderate Pain (4-6) Al Hydroxide/Mg Hydroxide (Maalox) 30 ml PO Q6H PRN PRN Reason: Heartburn or Indigestion Albuterol Sulfate (Ventolin) 2.5 mg NEB [id number] PRN PRN Reason: Wheezing Last Admin: 09/10/17 17:54 Dose: 2.5 mg Amitriptyline HCl (Elavil) 50 mg PO HS [facility] Last Admin: 09/10/17 22:39 Dose: 50 mg Artificial Tears (Tears Naturale) 0 drop EA EYE PRN PRN PRN Reason: Dry Eyes Ascorbic Acid (Vitamin C) 500 mg PO DAILY [facility] Last Admin: 09/11/17 08:49 Dose: 500 mg Calcium Citrate (Calcium Citrate) 950 mg PO DAILY [facility] Last Admin: 09/10/17 09:00 Dose: Not Given Fish Oil (Fish Oil) 1,000 mg PO [facility] Last Admin: 09/10/17 22:38 Dose: 1,000 mg Fluoxetine HCl (Prozac Oral Soln) 20 mg PO DAILY [facility] Last Admin: 09/11/17 08:51 Dose: 20 mg Guaifenesin (Robitussin Sf) 200 mg PO Q4H PRN PRN Reason: Cough Hydralazine HCl (Apresoline) 10 mg SLOW IVP Q4H PRN PRN Reason: Systolic BP > 180 Levothyroxine Sodium (Synthroid) 100 mcg PO 0600 [facility] Last Admin: 09/11/17 08:36 Dose: 100 mcg Loperamide HCl (Imodium) 2 mg PO PRN PRN PRN Reason: Diarrhea/Loose Stools Loratadine (Claritin) 10 mg PO DAILYPRN PRN PRN Reason: Sinus Symptoms Magnesium Hydroxide (Milk Of Magnesium) 30 ml PO DAILYPRN PRN PRN Reason: Constipation Mineral Oil/White Petrolatum (Eucerin Cream) 0 gm TOP BIDPRN PRN PRN Reason: Dry Skin Mometasone Furoate/Formoterol Fumar (Dulera 100 Mcg/5 Mcg Inhaler) 1 puff INH BID-RT [facility] Last Admin: 09/11/17 08:50 Dose: 1 puff Morphine Sulfate (Morphine) 2 mg SLOW IVP NOW [facility] Stop: 09/11/17 11:00 Multivitamins (Theragran) 1 tab PO DAILY [facility] Last Admin: 09/11/17 08:48 Dose: 1 tab Ondansetron HCl (Zofran Odt) 4 mg PO Q6H PRN PRN Reason: Nausea/Vomiting Ondansetron HCl (Zofran) 4 mg IVP Q6H PRN PRN Reason: Nausea/Vomiting Pantoprazole Sodium (Protonix) 40 mg IVP Q12HR [facility] Last Admin: 09/11/17 08:49 Dose: 40 mg Phenol (Chloraseptic [place] 180 Ml Bot) 0 ml PO PRN PRN PRN Reason: Sore Throat Potassium Chloride (Klor-Con 10) 10 meq PO QAM-WM [facility] Last Admin: 09/11/17 08:48 Dose: 10 meq Potassium Chloride (K-Dur) 20 meq PO BID [facility] Last Admin: 09/11/17 08:49 Dose: 20 meq Senna (Senokot) 2 tab PO HSPRN PRN PRN Reason: Constipation Sodium Chloride ([place] Nasal [place] 0.65%) 0 ml EA NARE QIDPRN PRN PRN Reason: Nasal Congestion Sodium Chloride (Flush - Normal Saline) 10 ml IVF Q12HR [facility] Last Admin: 09/10/17 22:42 Dose: 10 ml Sodium Chloride (Flush - Normal Saline) 10 ml IVF PRN PRN PRN Reason: Saline Flush Zolpidem Tartrate (Ambien) 5 mg PO HSPRN PRN PRN Reason: Insomnia
[2017-09-11] MEDS: Calcium Citrate 950 MG TAB PO SCH (11:18)
--- NOTE | 2017-09-11 15:09 | NM ---
GI BLEEDING STUDY: Date: 09/11/17 PROVIDED CLINICAL HISTORY: GI bleed. RADIOPHARMACEUTICAL: 27 mCi technetium-99m labeled tagged RBCs IV. FINDINGS: Planar imaging performed over the abdomen and pelvis after administration of technetium-99m labeled R BCs. There is no evidence for radiotracer accumulation to suggest active GI bleed. IMPRESSION: No scintigraphic evidence for active gastrointestinal bleed. POS: RYAN
[2017-09-11] MEDS: Sodium Chloride 0.9% 1,000 ML IV SCH (16:22)
[2017-09-11] MEDS: Fish Oil 1,000 MG CAP PO SCH (21:56)
[2017-09-11] MEDS: Amitriptyline HCl 25 MG TAB PO SCH (21:56)
[2017-09-12] MEDS: Acetaminophen 325 MG TAB PO PRN ×2 (05:18→23:17)
[2017-09-12] MEDS: Levothyroxine Sodium 100 MCG TAB PO SCH (05:18)
[2017-09-12 05:25] LABS: Anion Gap 10 mmol/L (10-20); BUN (Urea Nitrogen) 5 mg/dL (9.8-20.1); Calc. Creatinine Clearance 151 mL/min (70-130); Calcium 8.5 mg/dL (7.8-10.44); Carbon Dioxide 28 mmol/L (23-31); Chloride 107 mmol/L (98-107); Estimated GFR-MDRD Greater than 90; Glucose 98 mg/dL (80-115); Potassium 3.1 mmol/L (3.5-5.1); Sodium 142 mmol/L (136-145)
[2017-09-12 05:43] LABS: #Eosinphils 0.2 thou/uL (0.0-0.7); #Monocytes 0.6 thou/uL (0.11-0.59); #Neutrophils 2.6 thou/uL (1.40-6.50); %Basophils 0.5 % (0.0-1.0); %Eosinophils 3.8 % (0.0-10.0); %Lymphocytes 37.2 % (21.0-51.0); %Monocytes 10.5 % (0.0-10.0); Hemoglobin 10.4 g/dL (12.0-16.0); Mean Corpuscular HGB CONC 34.4 g/dL (32.0-36.0); Mean Corpuscular Hemoglobin 32.7 pg (27.0-31.0); Mean Corpuscular Volume 95.2 fL (78.0-98.0); Mean Platelet Volume 9.2 fL (7.4-10.4); Platelet Count 203 thou/uL (130-400); RBC Distribution Width 14.9 % (11.5-14.5); Red Blood Cell (RBC) Count 3.17 mill/uL (4.20-5.40); White Blood Cell (WBC) Count 5.4 thou/uL (4.8-10.8)
[2017-09-12] MEDS: Mometasone/Formoterol 120 PUFF INHALER INH SCH ×2 (06:50→18:37)
[2017-09-12] MEDS: Potassium Chloride 20 MEQ TAB PO SCH ×2 (09:05→19:54)
[2017-09-12] MEDS: Pantoprazole 40 MG VIAL IVP SCH ×2 (09:06→21:02)
[2017-09-12] MEDS: Ascorbic Acid 500 mg Chewable Tablet PO SCH (09:06)
[2017-09-12] MEDS: FLUoxetine HCl 20 MG/5 ML UDCUP PO SCH (09:06)
[2017-09-12] MEDS: Calcium Citrate 950 MG TAB PO SCH (09:06)
[2017-09-12] MEDS: Multivit, Therapeutic 1 TAB PO SCH (09:06)
--- NOTE | 2017-09-12 10:29 | PDOC.PN ---
- Subjective Encounter Start Date: 09/12/17 Encounter Start Time: 07:00 Patient seen and examined. No further bleeding, H & H stable, No new complaints. No overnight events - Objective MAR Reviewed: Yes Vital Signs & Weight: Vital Signs (12 hours) Temp Pulse Pulse Resp BP BP Pulse Ox 09/12/17 08:00 98 F 64 16 98 09/12/17 07:23 98 F 64 16 134/68 98 09/12/17 06:50 76 12 09/11/17 22:31 97.3 F L 76 16 130/69 95 Most Recent Monitor Data Heart Rate from ECG 72 NIBP 123/72 I&O: 09/11/17 09/12/17 09/13/17 06:59 06:59 06:59 Intake Total 1680 400 Balance 1680 400 Result Diagrams: 09/12/17 04:48 09/12/17 04:48 Phys Exam - Physical Examination Constitutional: NAD HEENT: PERRLA, moist MMs, sclera anicteric Neck: no JVD, supple Respiratory: no wheezing, no rales, no rhonchi Cardiovascular: RRR, no significant murmur, no rub Gastrointestinal: soft, non-tender, no distention, positive bowel sounds Musculoskeletal: no edema, pulses present Neurological: non-focal, normal sensation, moves all 4 limbs Psychiatric: normal affect, A&O x 3 Skin: no rash, normal turgor Dx/Plan (1) Acute GI bleeding Code(s): K92.2 - GASTROINTESTINAL HEMORRHAGE, UNSPECIFIED Status: Acute (2) Anemia due to acute blood loss Code(s): D62 - ACUTE POSTHEMORRHAGIC ANEMIA Status: Acute (3) Hypokalemia Code(s): E87.6 - HYPOKALEMIA Status: Acute (4) Hypotension Status: Acute (5) Anxiety and depression Code(s): F41.9 - ANXIETY DISORDER, UNSPECIFIED; F32.9 - MAJOR DEPRESSIVE DISORDER, SINGLE EPISODE, UNSPECIFIED Status: Chronic (6) Asthma Code(s): J45.909 - UNSPECIFIED ASTHMA, UNCOMPLICATED Status: Chronic (7) Hiatal hernia Code(s): K44.9 - DIAPHRAGMATIC HERNIA WITHOUT OBSTRUCTION OR GANGRENE Status: Chronic (8) Hypertension Code(s): I10 - ESSENTIAL (PRIMARY) HYPERTENSION Status: Chronic (9) Hypothyroidism Code(s): E03.9 - HYPOTHYROIDISM, UNSPECIFIED Status: Chronic (10) VAL on CPAP Code(s): G47.33 - OBSTRUCTIVE SLEEP APNEA (ADULT) (PEDIATRIC); Z99.89 - DEPENDENCE ON OTHER ENABLING MACHINES AND DEVICES Status: Chronic (11) Obesity (BMI 30-39.9) Code(s): E66.9 - OBESITY, UNSPECIFIED Status: Chronic (12) Osteoarthritis Code(s): M19.90 - UNSPECIFIED OSTEOARTHRITIS, UNSPECIFIED SITE Status: Chronic (13) PUD (peptic ulcer disease) Code(s): K27.9 - PEPTIC ULC, SITE UNSP, UNSP AC OR CHR, W/O HEMOR OR PERF Status: Chronic - Plan cont current plan of care * medication reviewed as below * symptomatic treatment * pt prefers to stay one more day to see her H & H stable * will replace potassium * repeat labs tomorrow * expecting discharge tomorrow * discussed with GI. Review of Systems - Review of Systems Eyes: negative: Pain, Vision Change, Conjunctivae Inflammation, Eyelid Inflammation, Redness, Other ENT: negative: Ear Pain, Ear Discharge, Nose Pain, Nose Discharge, Nose Congestion, Mouth Pain, Mouth Swelling, Throat Pain, Throat Swelling, Other Respiratory: negative: Cough, Dry, Shortness of Breath, Hemoptysis, SOB with Excertion, Pleuritic Pain, Sputum, Wheezing Cardiovascular: negative: chest pain, palpitations, orthopnea, paroxysmal nocturnal dyspnea, edema, light headedness, other Gastrointestinal: negative: Nausea, Vomiting, Abdominal Pain, Diarrhea, Constipation, Melena, Hematochezia, Other Genitourinary: negative: Dysuria, Frequency, Incontinence, Hematuria, Retention , Other Musculoskeletal: negative: Neck Pain, Shoulder Pain, Arm Pain, Back Pain, Hand Pain, Leg Pain, Foot Pain, Other Skin: negative: Rash, Lesions, Yusef, Bruising, Other - Medications/Allergies Allergies/Adverse Reactions: Allergies Allergy/AdvReac Type Severity Reaction Status Date / Time No Known Allergies Allergy Verified 03/13/15 09:24 Medications: Current Medications Acetaminophen (Tylenol) 650 mg PO Q4H PRN PRN Reason: Headache/Fever or Pain Last Admin: 09/12/17 05:18 Dose: 650 mg Hydrocodone Bitart/Acetaminophen ([place] 5/325) 1 tab PO Q4H PRN PRN Reason: Moderate Pain (4-6) Last Admin: 09/11/17 11:09 Dose: 1 tab Al Hydroxide/Mg Hydroxide (Maalox) 30 ml PO Q6H PRN PRN Reason: Heartburn or Indigestion Albuterol Sulfate (Ventolin) 2.5 mg NEB [id number] PRN PRN Reason: Wheezing Last Admin: 09/10/17 17:54 Dose: 2.5 mg Amitriptyline HCl (Elavil) 50 mg PO [facility] Last Admin: 09/11/17 21:56 Dose: 50 mg Artificial Tears (Tears Naturale) 0 drop EA EYE PRN PRN PRN Reason: Dry Eyes Ascorbic Acid (Vitamin C) 500 mg PO DAILY [facility] Last Admin: 09/12/17 09:06 Dose: 500 mg Calcium Citrate (Calcium Citrate) 950 mg PO DAILY [facility] Last Admin: 09/12/17 09:06 Dose: 950 mg Fish Oil (Fish Oil) 1,000 mg PO [facility] Last Admin: 09/11/17 21:56 Dose: 1,000 mg Fluoxetine HCl (Prozac Oral Soln) 20 mg PO DAILY [facility] Last Admin: 09/12/17 09:06 Dose: 20 mg Guaifenesin (Robitussin Sf) 200 mg PO Q4H PRN PRN Reason: Cough Hydralazine HCl (Apresoline) 10 mg SLOW IVP Q4H PRN PRN Reason: Systolic BP > 180 Levothyroxine Sodium (Synthroid) 100 mcg PO 0600 [facility] Last Admin: 09/12/17 05:18 Dose: 100 mcg Loperamide HCl (Imodium) 2 mg PO PRN PRN PRN Reason: Diarrhea/Loose Stools Loratadine (Claritin) 10 mg PO DAILYPRN PRN PRN Reason: Sinus Symptoms Magnesium Hydroxide (Milk Of Magnesium) 30 ml PO DAILYPRN PRN PRN Reason: Constipation Mineral Oil/White Petrolatum (Eucerin Cream) 0 gm TOP BIDPRN PRN PRN Reason: Dry Skin Mometasone Furoate/Formoterol Fumar (Dulera 100 Mcg/5 Mcg Inhaler) 1 puff INH BID-RT [facility] Last Admin: 09/12/17 06:50 Dose: 1 puff Multivitamins (Theragran) 1 tab PO DAILY [facility] Last Admin: 09/12/17 09:06 Dose: 1 tab Ondansetron HCl (Zofran Odt) 4 mg PO Q6H PRN PRN Reason: Nausea/Vomiting Ondansetron HCl (Zofran) 4 mg IVP Q6H PRN PRN Reason: Nausea/Vomiting Pantoprazole Sodium (Protonix) 40 mg IVP Q12HR [facility] Last Admin: 09/12/17 09:06 Dose: 40 mg Phenol (Chloraseptic [place] 180 Ml Bot) 0 ml PO PRN PRN PRN Reason: Sore Throat Potassium Chloride (K-Dur) 40 meq PO BID [facility] Last Admin: 09/12/17 09:05 Dose: 40 meq Senna (Senokot) 2 tab PO HSPRN PRN PRN Reason: Constipation Sodium Chloride ([place] Nasal [place] 0.65%) 0 ml EA NARE QIDPRN PRN PRN Reason: Nasal Congestion Sodium Chloride (Flush - Normal Saline) 10 ml IVF Q12HR [facility] Last Admin: 09/12/17 09:06 Dose: 10 ml Sodium Chloride (Flush - Normal Saline) 10 ml IVF PRN PRN PRN Reason: Saline Flush Zolpidem Tartrate (Ambien) 5 mg PO HSPRN PRN PRN Reason: Insomnia
--- NOTE | 2017-09-12 14:21 | PRG ---
DATE OF SERVICE: 09/12/2017 SUBJECTIVE: This is a 67-year-old female hospitalized with GI bleeding. She underwent an EGD and was negative. Colonoscopy showed diverticular disease. The patient had an episode of bleedi ng yesterday morning. She had three bloody stools, 2 on Wednesday night and 1 early Wednesday morning. She was sent for a stat GI bleeding scan. The GI bleeding scan showed no bleeding site. The patient has had normal stool entirely yesterday and showed normal stool last night. She had 1 stool today, but there is no blood in the stool. She did receive 1 unit of packed RBCs yesterday. Her blood coun t actually has come up to around 10.4 this morning. PHYSICAL EXAMINATION: GENERAL: Appears very comfortable. She is awake, alert, and communicative. She offers no complaint s. VITAL SIGNS: Afebrile, pulse is 64, blood pressure 134/68. CARDIOVASCULAR: First and second heart sounds are normal. LUNGS: Clear to auscultation. ABDOMEN: Soft, nontender. No organomegaly or masses. CLINICAL IMPRESSION: GI bleeding, etiology unclear, most likely from diverticular disease. GI bleed ing scan yesterday was negative. RECOMMENDATION: 1. Advance diet to regular diet. 2. Consider discharge in the next 24 hours. She will follow up with Dr. Tera Jones as an ou tpatient.
[2017-09-12] MEDS: Amitriptyline HCl 25 MG TAB PO SCH (21:01)
[2017-09-12] MEDS: Fish Oil 1,000 MG CAP PO SCH (21:01)
[2017-09-12] MEDS ORDERED: Lisinopril 20 MG TAB PO SCH (21:30)
[2017-09-12] MEDS ORDERED: Hydrochlorothiazide 25 MG TAB PO SCH (21:30)
[2017-09-12 23:24] VITALS: TEMP 98.1
[2017-09-13] MEDS: Levothyroxine Sodium 100 MCG TAB PO SCH (05:09)
[2017-09-13 06:49] LABS: #Eosinphils 0.2 thou/uL (0.0-0.7); #Lymphocytes 1.5 thou/uL (1.20-3.40); #Monocytes 0.6 thou/uL (0.11-0.59); #Neutrophils 3.2 thou/uL (1.40-6.50); %Basophils 0.7 % (0.0-1.0); %Eosinophils 3.3 % (0.0-10.0); %Lymphocytes 27.9 % (21.0-51.0); %Monocytes 10.8 % (0.0-10.0); %Neutrophils 57.3 % (42.0-75.0); Hemoglobin 9.5 g/dL (12.0-16.0); Mean Corpuscular HGB CONC 34.4 g/dL (32.0-36.0); Mean Corpuscular Hemoglobin 33.1 pg (27.0-31.0); Mean Corpuscular Volume 96.3 fL (78.0-98.0); Mean Platelet Volume 8.4 fL (7.4-10.4); Platelet Count 183 thou/uL (130-400); RBC Distribution Width 15.1 % (11.5-14.5); Red Blood Cell (RBC) Count 2.86 mill/uL (4.20-5.40); White Blood Cell (WBC) Count 5.5 thou/uL (4.8-10.8)
[2017-09-13 07:09] LABS: Anion Gap 9 mmol/L (10-20); BUN (Urea Nitrogen) 5 mg/dL (9.8-20.1); Calc. Creatinine Clearance 142 mL/min (70-130); Calcium 8.6 mg/dL (7.8-10.44); Carbon Dioxide 30 mmol/L (23-31); Chloride 106 mmol/L (98-107); Estimated GFR-MDRD Greater than 90; Glucose 101 mg/dL (80-115); Potassium 3.7 mmol/L (3.5-5.1); Sodium 141 mmol/L (136-145)
[2017-09-13 07:34] VITALS: BP 144/67
[2017-09-13] MEDS: Mometasone/Formoterol 120 PUFF INHALER INH SCH (07:39)
[2017-09-13] MEDS ORDERED: Lisinopril 20 MG TAB PO SCH (09:00)
[2017-09-13] MEDS ORDERED: Hydrochlorothiazide 25 MG TAB PO SCH (09:00)
[2017-09-13] MEDS: Ascorbic Acid 500 mg Chewable Tablet PO SCH (09:48)
[2017-09-13] MEDS: Pantoprazole 40 MG VIAL IVP SCH (09:48)
[2017-09-13] MEDS: FLUoxetine HCl 20 MG/5 ML UDCUP PO SCH (09:49)
[2017-09-13] MEDS: Potassium Chloride 20 MEQ TAB PO SCH (09:49)
[2017-09-13] MEDS: Calcium Citrate 950 MG TAB PO SCH (09:49)
[2017-09-13] MEDS: Multivit, Therapeutic 1 TAB PO SCH (09:49)
[2017-09-13] MEDS: Acetaminophen 325 MG TAB PO PRN (09:56)
--- NOTE | 2017-09-13 10:37 | PDOC.PN ---
- Subjective Encounter Start Date: 09/13/17 Encounter Start Time: 07:00 Patient seen and examined. No new complaints. No overnight events - Objective MAR Reviewed: Yes Vital Signs & Weight: Vital Signs (12 hours) Temp Pulse Resp BP Pulse Ox 09/13/17 07:50 98.1 F 90 18 94 L 09/13/17 07:39 90 18 98 09/13/17 07:28 98.1 F 68 16 144/67 H 94 L 09/13/17 05:00 76 18 138/72 09/12/17 23:24 98.1 F 77 16 164/77 H 98 Most Recent Monitor Data Heart Rate from ECG 72 NIBP 123/72 I&O: 09/12/17 09/13/17 09/14/17 06:59 06:59 06:59 Intake Total 400 1979 Balance 400 1979 Result Diagrams: 09/13/17 06:41 09/13/17 06:41 Phys Exam - Physical Examination Constitutional: NAD HEENT: PERRLA, moist MMs, sclera anicteric Neck: no JVD, supple Respiratory: no wheezing, no rales, no rhonchi Cardiovascular: RRR, no significant murmur, no rub Gastrointestinal: soft, non-tender, no distention, positive bowel sounds Musculoskeletal: no edema, pulses present Neurological: non-focal, normal sensation, moves all 4 limbs Psychiatric: normal affect, A&O x 3 Skin: no rash, normal turgor Dx/Plan (1) Acute GI bleeding Code(s): K92.2 - GASTROINTESTINAL HEMORRHAGE, UNSPECIFIED Status: Acute (2) Anemia due to acute blood loss Code(s): D62 - ACUTE POSTHEMORRHAGIC ANEMIA Status: Acute (3) Hypokalemia Code(s): E87.6 - HYPOKALEMIA Status: Acute (4) Hypotension Status: Acute (5) Anxiety and depression Code(s): F41.9 - ANXIETY DISORDER, UNSPECIFIED; F32.9 - MAJOR DEPRESSIVE DISORDER, SINGLE EPISODE, UNSPECIFIED Status: Chronic (6) Asthma Code(s): J45.909 - UNSPECIFIED ASTHMA, UNCOMPLICATED Status: Chronic (7) Hiatal hernia Code(s): K44.9 - DIAPHRAGMATIC HERNIA WITHOUT OBSTRUCTION OR GANGRENE Status: Chronic (8) Hypertension Code(s): I10 - ESSENTIAL (PRIMARY) HYPERTENSION Status: Chronic (9) Hypothyroidism Code(s): E03.9 - HYPOTHYROIDISM, UNSPECIFIED Status: Chronic (10) VAL on CPAP Code(s): G47.33 - OBSTRUCTIVE SLEEP APNEA (ADULT) (PEDIATRIC); Z99.89 - DEPENDENCE ON OTHER ENABLING MACHINES AND DEVICES Status: Chronic (11) Obesity (BMI 30-39.9) Code(s): E66.9 - OBESITY, UNSPECIFIED Status: Chronic (12) Osteoarthritis Code(s): M19.90 - UNSPECIFIED OSTEOARTHRITIS, UNSPECIFIED SITE Status: Chronic (13) PUD (peptic ulcer disease) Code(s): K27.9 - PEPTIC ULC, SITE UNSP, UNSP AC OR CHR, W/O HEMOR OR PERF Status: Chronic - Plan cont current plan of care * medication reviewed as below * symptomatic treatment * see discharge summery * stable for discharge today * discharge medication reconciliation done. Review of Systems - Review of Systems Eyes: negative: Pain, Vision Change, Conjunctivae Inflammation, Eyelid Inflammation, Redness, Other ENT: negative: Ear Pain, Ear Discharge, Nose Pain, Nose Discharge, Nose Congestion, Mouth Pain, Mouth Swelling, Throat Pain, Throat Swelling, Other Respiratory: negative: Cough, Dry, Shortness of Breath, Hemoptysis, SOB with Excertion, Pleuritic Pain, Sputum, Wheezing Cardiovascular: negative: chest pain, palpitations, orthopnea, paroxysmal nocturnal dyspnea, edema, light headedness, other Gastrointestinal: negative: Nausea, Vomiting, Abdominal Pain, Diarrhea, Constipation, Melena, Hematochezia, Other Genitourinary: negative: Dysuria, Frequency, Incontinence, Hematuria, Retention , Other Musculoskeletal: negative: Neck Pain, Shoulder Pain, Arm Pain, Back Pain, Hand Pain, Leg Pain, Foot Pain, Other Skin: negative: Rash, Lesions, Yusef, Bruising, Other - Medications/Allergies Allergies/Adverse Reactions: Allergies Allergy/AdvReac Type Severity Reaction Status Date / Time No Known Allergies Allergy Verified 03/13/15 09:24 Medications: Current Medications Acetaminophen (Tylenol) 650 mg PO Q4H PRN PRN Reason: Headache/Fever or Pain Last Admin: 09/13/17 09:56 Dose: 650 mg Hydrocodone Bitart/Acetaminophen ([place] 5/325) 1 tab PO Q4H PRN PRN Reason: Moderate Pain (4-6) Last Admin: 09/11/17 11:09 Dose: 1 tab Al Hydroxide/Mg Hydroxide (Maalox) 30 ml PO Q6H PRN PRN Reason: Heartburn or Indigestion Albuterol Sulfate (Ventolin) 2.5 mg NEB [id number] PRN PRN Reason: Wheezing Last Admin: 09/10/17 17:54 Dose: 2.5 mg Amitriptyline HCl (Elavil) 50 mg PO [facility] Last Admin: 09/12/17 21:01 Dose: 50 mg Artificial Tears (Tears Naturale) 0 drop EA EYE PRN PRN PRN Reason: Dry Eyes Ascorbic Acid (Vitamin C) 500 mg PO DAILY [facility] Last Admin: 09/13/17 09:48 Dose: 500 mg Calcium Citrate (Calcium Citrate) 950 mg PO DAILY [facility] Last Admin: 09/13/17 09:49 Dose: 950 mg Fish Oil (Fish Oil) 1,000 mg PO [facility] Last Admin: 09/12/17 21:01 Dose: 1,000 mg Fluoxetine HCl (Prozac Oral Soln) 20 mg PO DAILY [facility] Last Admin: 09/13/17 09:49 Dose: 20 mg Guaifenesin (Robitussin Sf) 200 mg PO Q4H PRN PRN Reason: Cough Hydralazine HCl (Apresoline) 10 mg SLOW IVP Q4H PRN PRN Reason: Systolic BP > 180 Hydrochlorothiazide (Hydrochlorothiazide) 25 mg PO DAILY [facility] Last Admin: 09/13/17 09:48 Dose: 25 mg Levothyroxine Sodium (Synthroid) 100 mcg PO 0600 [facility] Last Admin: 09/13/17 05:09 Dose: 100 mcg Lisinopril (Zestril) 40 mg PO BID [facility] Last Admin: 09/13/17 09:49 Dose: 40 mg Loperamide HCl (Imodium) 2 mg PO PRN PRN PRN Reason: Diarrhea/Loose Stools Loratadine (Claritin) 10 mg PO DAILYPRN PRN PRN Reason: Sinus Symptoms Magnesium Hydroxide (Milk Of Magnesium) 30 ml PO DAILYPRN PRN PRN Reason: Constipation Mineral Oil/White Petrolatum (Eucerin Cream) 0 gm TOP BIDPRN PRN PRN Reason: Dry Skin Mometasone Furoate/Formoterol Fumar (Dulera 100 Mcg/5 Mcg Inhaler) 1 puff INH BID-RT [facility] Last Admin: 09/13/17 07:39 Dose: 1 puff Multivitamins (Theragran) 1 tab PO DAILY [facility] Last Admin: 09/13/17 09:49 Dose: 1 tab Ondansetron HCl (Zofran Odt) 4 mg PO Q6H PRN PRN Reason: Nausea/Vomiting Ondansetron HCl (Zofran) 4 mg IVP Q6H PRN PRN Reason: Nausea/Vomiting Pantoprazole Sodium (Protonix) 40 mg IVP Q12HR [facility] Last Admin: 09/13/17 09:48 Dose: 40 mg Phenol (Chloraseptic [place] 180 Ml Bot) 0 ml PO PRN PRN PRN Reason: Sore Throat Potassium Chloride (K-Dur) 40 meq PO BID [facility] Last Admin: 09/13/17 09:49 Dose: 40 meq Senna (Senokot) 2 tab PO HSPRN PRN PRN Reason: Constipation Sodium Chloride ([place] Nasal [place] 0.65%) 0 ml EA NARE QIDPRN PRN PRN Reason: Nasal Congestion Sodium Chloride (Flush - Normal Saline) 10 ml IVF Q12HR [facility] Last Admin: 09/13/17 09:49 Dose: 10 ml Sodium Chloride (Flush - Normal Saline) 10 ml IVF PRN PRN PRN Reason: Saline Flush Zolpidem Tartrate (Ambien) 5 mg PO HSPRN PRN PRN Reason: Insomnia
--- NOTE | 2017-09-13 12:17 | DIS ---
PRIMARY CARE PHYSICIAN: Dr. Jossue Oliveira DATE OF ADMISSION: 09/09/2017 DATE OF DISCHARGE 09/13/2017 DISCHARGE DISPOSITION: Home. PRIMARY DISCHARGE DIAGNOSES: 1. Acute lower gastrointestinal bleed due to diverticular bleed. 2. Anemia due to acute blood loss 3. Hypokalemia. 4. Hypotension. 5. Diverticulosis of colon. SECONDARY DISCHARGE DIAGNOSES: History of peptic ulcer disease, hiatal hernia, osteoarthritis, obstr uctive sleep apnea on CPAP, obesity with BMI 38, hypothyroidism, hypertension, asthma, anxiety, and d epression. PRIMARY PROCEDURES/OPERATIONS: EGD showed hiatal hernia. Colonoscopy showed diverticulosis. RADIOLOGICAL INVESTIGATION: Chest x-ray normal. RBC tagged scan negative for acute bleed. SIGNIFICANT LABORATORY DATA: WBC 5.5, hemoglobin 9.5, platelet 183,000. INR 1.0. Sodium 141, potas sium 3.7, BUN 5, creatinine 0.65, calcium 8.5. DISCHARGE MEDICATIONS: The patient is instructed to hold blood pressure medicine if blood pressure i s less than 120 systolic. Continue her previous home medications, Ventolin HFA 2 puffs q.4. p.r.n., Elavil 50 mg p.o. at bedtime, vitamin C 500 mg p.o. daily, calcium citrate 1000 mg p.o. daily, candelario us sulfate 325 mg p.o. daily, fish oil 1000 mg p.o. at bedtime, Prozac 20 mg p.o. daily, Advair 1 inh alation b.i.d., Lasix 20 mg p.o. b.i.d., hydrochlorothiazide 25 mg p.o. b.i.d., Synthroid 100 mcg p.o . daily, lisinopril 40 mg p.o. b.i.d., multivitamin 1 tablet p.o. daily, Protonix 40 mg p.o. daily, K -Dur 20 mEq p.o. b.i.d. CONTRAINDICATIONS: None. CODE STATUS: FULL CODE. INPATIENT CONSULTANTS: Dr. Jones did upper and lower endoscopy. TEST RESULTS PENDING ON DISCHARGE: None. ALLERGIES: No known drug allergy. DISCHARGE PLAN: Post hospital, the patient is instructed to follow up with primary care physician. HOSPITAL COURSE: A 67-year-old female who was admitted by me on 09/09/2017. Please see my HPI for f urther details. This patient had painless lower gastrointestinal bleed with bright red blood per rec christian. We suspected lower GI bleed from diverticular bleed, but she was hypotensive and that is why th ere was concern of upper GI bleed as well given her history of peptic ulcer disease. [place] and they did both upper and lower endoscopy. The patient found with hiatal hernia a s well as diverticulosis, but no active bleeding. This patient was monitored with H&H and her hemoglobin dropped one time to 6.9 and that is why she re quired blood transfusion of 1 unit. She had hypokalemia that was also required potassium supplementa tion. We did RBC tagged scan that was negative for any active bleeding. At this point, the patient is hemodynamically stable. The patient will continue all her previous med ication. Necessary patient education about holding blood pressure medication in view of low blood pr essure is advised. The patient will continue all other medication. The patient is seen and examined at bedside today. Please see my progress note from today for furthe r details.
== END 2017-09-13 12:20 | disposition home or self-care (01) | DRG 378 ==
LOC: ERS 07:20 → 2SW 11:47 → ONC 17:22 → OBSVTOIN 18:12
PROVIDERS: ADMIT Internal Medicine; ATTEND Internal Medicine
PROC: 0DJ08ZZ Inspection of Upper Intestinal Tract, Via Natural or Artificial Opening Endoscopic (ICD-10-PCS; 2017-09-10)
PROC: 0DJD8ZZ Inspection of Lower Intestinal Tract, Via Natural or Artificial Opening Endoscopic (ICD-10-PCS; 2017-09-10)
PROC: 30233N1 Transfusion of Nonautologous Red Blood Cells into Peripheral Vein, Percutaneous Approach (ICD-10-PCS; principal; 2017-09-11)
PROC: CD171ZZ Planar Nuclear Medicine Imaging of Gastrointestinal Tract using Technetium 99m (Tc-99m) (ICD-10-PCS; 2017-09-11)
DX: K57.31 Diverticulosis of large intestine without perforation or abscess with bleeding (principal); D62 Acute posthemorrhagic anemia; E87.6 Hypokalemia; I95.9 Hypotension, unspecified; Z87.11 Personal history of peptic ulcer disease; M19.90 Unspecified osteoarthritis, unspecified site; G47.33 Obstructive sleep apnea (adult) (pediatric); Z99.81 Dependence on supplemental oxygen; E66.9 Obesity, unspecified; Z68.38 Body mass index [BMI] 38.0-38.9, adult; E03.9 Hypothyroidism, unspecified; I10 Essential (primary) hypertension; J45.909 Unspecified asthma, uncomplicated; F41.9 Anxiety disorder, unspecified; F32.9 Major depressive disorder, single episode, unspecified; Z79.890 Hormone replacement therapy; K44.9 Diaphragmatic hernia without obstruction or gangrene; K21.9 Gastro-esophageal reflux disease without esophagitis
CPT/HCPCS: 36415; 36430; 71045; 78278; 80048; 80053; 81003; 81015; 82274; 82728; 83540; 83550; 83735; 84100; 85025; 85610; 85730; 86850; 86900; 86901; 93005; 94640; 99284; A4216; A9604; C9113; J2001; J2704; J3480; J7611; P9016

== ENCOUNTER 2017-09-22 16:21 | Outpatient (CLI) | payer MEDICARE | END 2017-09-22 16:22 | disposition home or self-care (01) | LOC: BICMAMMO 16:21 | PROVIDERS: ATTEND Family Medicine | DX: Z12.31 Encounter for screening mammogram for malignant neoplasm of breast (principal) | CPT/HCPCS: 77063; 77067 ==

== ENCOUNTER 2018-01-31 15:30 | Outpatient (CLI) | payer MEDICARE ==
--- NOTE | 2018-01-31 21:34 | RAD ---
PA AND LATERAL CHEST: HISTORY: Acute bronchitis exacerbation. Congestion and cough. COMPARISON: 07/17/2017 FINDINGS: Heart size is at the upper limits of normal. Mediastinal structures appear unremarkable, other than the presence of a hiatal hernia. Lungs are clear of infiltrates. IMPRESSION: 1. Borderline heart size. 2. Hiatal hernia. POS: [facility]
== END 2018-01-31 15:31 | disposition home or self-care (01) ==
LOC: BICRAD 15:30
PROVIDERS: ATTEND Family Medicine
DX: J45.901 Unspecified asthma with (acute) exacerbation (principal); K44.9 Diaphragmatic hernia without obstruction or gangrene
CPT/HCPCS: 71046

== ENCOUNTER 2018-06-20 10:11 | Outpatient (CLI) | payer MEDICARE ==
--- NOTE | 2018-06-20 10:43 | RAD ---
LEFT FOOT 3 VIEWS: HISTORY: Pain in the left foot and dorsal aspects of the 2nd through 5th metatarsals. FINDINGS: Degenerative changes are present. No acute fracture or dislocation or bony destruction is identified . There is subluxation of the PIP joint of the little toe/5th digit. Plantar and posterior calcanea l spurs are present. POS: [facility]
== END 2018-06-20 10:12 | disposition home or self-care (01) ==
LOC: BICRAD 10:11
PROVIDERS: ATTEND Family Medicine
DX: M79.672 Pain in left foot (principal)

== ENCOUNTER 2018-09-28 12:10 | Outpatient (CLI) | payer MEDICARE ==
--- NOTE | 2018-09-28 13:48 | MMO ---
Bilateral MAMMO Bilat Screen [facility]. CLINICAL HISTORY: Patient is 68 years old and is seen for screening. The patient has no family history of breast cancer. The patient has no personal history of cancer. The patient has a history of right Excisional Biopsy in 2016 - benign. VIEWS: The views performed were: bilateral craniocaudal with tomosynthesis and bilateral mediolateral oblique with tomosynthesis. FILMS COMPARED: The present examination has been compared to prior imaging studies performed at [facility] on 02/07/2015, 07/31/2015, 09/10/2016 and 09/22/2017. MAMMOGRAM FINDINGS: Finding 1: There are stable benign appearing calcifications seen in both breasts. There are also vascular calcifications. Finding 2: There are stable post operative changes seen in the right breast. There are no suspicious masses, suspicious calcifications, or new areas of architectural distortion. IMPRESSION: THERE IS NO MAMMOGRAPHIC EVIDENCE OF MALIGNANCY. A ROUTINE FOLLOW-UP MAMMOGRAM IN 1 YEAR IS RECOMMENDED. THE RESULTS OF THIS EXAM WERE SENT TO THE PATIENT. ACR BI-RADS Category 2 - Benign finding MAMMOGRAPHY NOTE: 1. A negative mammogram report should not delay a biopsy if a dominant of clinically suspicious mass is present. 2. Approximately 10% to 15% of breast cancers are not detected by mammography. 3. Adenosis and dense breasts may obscure an underlying neoplasm. Reported by: ELISA GO MD Electonically Signed: [id number]
== END 2018-09-28 12:11 | disposition home or self-care (01) ==
LOC: BICMAMMO 12:10
PROVIDERS: ATTEND Family Medicine
DX: Z12.31 Encounter for screening mammogram for malignant neoplasm of breast (principal)
CPT/HCPCS: 77063; 77067

== ENCOUNTER 2019-10-04 09:32 | Outpatient (CLI) | payer MEDICARE ==
--- NOTE | 2019-10-04 10:20 | MMO ---
Bilateral MAMMO Bilat Screen [facility]. CLINICAL HISTORY: Patient is 69 years old and is seen for screening. The patient has no family history of breast cancer. The patient has no personal history of cancer. The patient has a history of right Excisional Biopsy in 2016 - benign. VIEWS: The views performed were: bilateral craniocaudal with tomosynthesis and bilateral mediolateral oblique with tomosynthesis. FILMS COMPARED: The present examination has been compared to prior imaging studies performed at [facility] on 07/31/2015, 09/10/2016, 09/22/2017 and 09/28/2018. This study has been interpreted with the assistance of computer-aided detection. MAMMOGRAM FINDINGS: There are scattered fibroglandular densities. There are stable benign appearing calcifications seen in both breasts. There are also vascular calcifications. There are no suspicious masses, suspicious calcifications, or new areas of architectural distortion. IMPRESSION: THERE IS NO MAMMOGRAPHIC EVIDENCE OF MALIGNANCY. A ROUTINE FOLLOW-UP MAMMOGRAM IN 1 YEAR IS RECOMMENDED. THE RESULTS OF THIS EXAM WERE SENT TO THE PATIENT. ACR BI-RADS Category 2 - Benign finding MAMMOGRAPHY NOTE: 1. A negative mammogram report should not delay a biopsy if a dominant of clinically suspicious mass is present. 2. Approximately 10% to 15% of breast cancers are not detected by mammography. 3. Adenosis and dense breasts may obscure an underlying neoplasm. Reported by: ELISA GO MD Electonically Signed: [id number]
== END 2019-10-04 09:33 | disposition home or self-care (01) ==
LOC: BICMAMMO 09:32
PROVIDERS: ATTEND Family Medicine
DX: Z12.31 Encounter for screening mammogram for malignant neoplasm of breast (principal); Z91.89 Other specified personal risk factors, not elsewhere classified
CPT/HCPCS: 77063; 77067

== ENCOUNTER 2020-04-24 12:01 | Outpatient (CLI) | payer MEDICARE ==
--- NOTE | 2020-04-24 13:25 | RAD ---
Exam: XR Foot Lt 3 View STANDARD HISTORY: Left foot pain for 2 years. No known injury. Patient states pain involves left foot diffusely. COMPARISON: 06/20/2018 FINDINGS: There is stable mild lateral subluxation of the middle phalanx with respect to the proximal phalanx l eft fifth digit. Scattered osteoarthritis is seen about the left foot. The Lisfranc joint is normally aligned. Prominent degenerative changes are seen involving the talonavicular joint similar t o prior exam. Plantar and posterior calcaneal enthesophytes are again identified. No fracture or dislocation is seen. No other interval change. IMPRESSION: 1. No acute osseous abnormalities 2. 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
== END 2020-04-24 12:02 | disposition home or self-care (01) ==
LOC: BICRAD 12:01
PROVIDERS: ATTEND Family Medicine
DX: M79.672 Pain in left foot (principal); M19.072 Primary osteoarthritis, left ankle and foot

== ENCOUNTER 2020-11-08 10:49 | Outpatient (CLI) | payer MEDICARE | END 2020-11-08 10:50 | disposition home or self-care (01) | LOC: BICMAMMO 10:49 | PROVIDERS: ATTEND Family Medicine | DX: Z12.31 Encounter for screening mammogram for malignant neoplasm of breast (principal) | CPT/HCPCS: 77063; 77067 ==

== ENCOUNTER 2021-01-13 19:59 | Observation (INO) | payer MEDICARE ==
[2021-01-13] MEDS ORDERED: Ondansetron PF 4 MG/2 ML Vial ONE (21:11)
[2021-01-13 21:26] LABS: #Eosinphils 0.1 thou/uL (0.0-0.7); #Monocytes 0.8 thou/uL (0.11-0.59); #Neutrophils 7.2 thou/uL (1.40-6.50); %Basophils 0.3 % (0.0-1.0); %Eosinophils 0.9 % (0.0-10.0); %Lymphocytes 19.5 % (21.0-51.0); %Monocytes 8.3 % (0.0-10.0); Hemoglobin 12.5 g/dL (12.0-16.0); Mean Corpuscular HGB CONC 33.4 g/dL (32.0-36.0); Mean Corpuscular Hemoglobin 33.8 pg (27.0-31.0); Mean Platelet Volume 9.9 fL (7.4-10.4); Platelet Count 204 thou/uL (130-400); RBC Distribution Width 12.9 % (11.5-14.5); White Blood Cell (WBC) Count 10.1 thou/uL (4.8-10.8)
[2021-01-13 22:12] LABS: ALT (SGPT) 21 U/L (8-55); AST (SGOT) 30 U/L (5-34); Albumin 3.9 g/dL (3.4-4.8); Alkaline Phosphatase 91 U/L (40-110); Anion Gap 15 mmol/L (10-20); BUN (Urea Nitrogen) 27 mg/dL (9.8-20.1); Bilirubin, Total 0.3 mg/dL (0.2-1.2); Calc. Creatinine Clearance 0 mL/min (70-130); Calcium 9.4 mg/dL (7.8-10.44); Carbon Dioxide 26 mmol/L (23-31); Chloride 103 mmol/L (98-107); Globulin 3.2 g/dL (2.4-3.5); Glucose 101 mg/dL (83-110); Potassium 3.8 mmol/L (3.5-5.1); Protein, Total 7.1 g/dL (5.8-8.1); Sodium 140 mmol/L (136-145)
[2021-01-13] MEDS ORDERED: Aspirin 325 MG TAB ONE ×2 (23:01→23:03)
[2021-01-14] MEDS ORDERED: Acetaminophen 325 MG TAB PO PRN (00:30)
[2021-01-14] MEDS ORDERED: Ondansetron ODT 4 MG TAB SL PRN (00:30)
[2021-01-14] MEDS ORDERED: Ondansetron PF 4 MG/2 ML Vial IVP PRN ×2 (00:30→02:13)
[2021-01-14] MEDS ORDERED: Albuterol Sulfate 2.5 mg/3 ml Neb NEB PRN (01:54)
[2021-01-14] MEDS ORDERED: Melatonin 3 MG TAB PO PRN (01:56)
[2021-01-14] MEDS ORDERED: hydrALAZINE 20 MG/ML VIAL SLOW IVP PRN (02:13)
[2021-01-14 03:02] VITALS: BMI 32.9
[2021-01-14 05:13] LABS: #Basophils 0.1 thou/uL (0.0-0.2); #Eosinphils 0.1 thou/uL (0.0-0.7); #Lymphocytes 2.3 thou/uL (1.20-3.40); #Monocytes 0.7 thou/uL (0.11-0.59); #Neutrophils 4.2 thou/uL (1.40-6.50); %Lymphocytes 31.7 % (21.0-51.0); %Monocytes 9.1 % (0.0-10.0); %Neutrophils 57.2 % (42.0-75.0); Hemoglobin 12.1 g/dL (12.0-16.0); Mean Corpuscular Hemoglobin 33.1 pg (27.0-31.0); Mean Platelet Volume 9.7 fL (7.4-10.4); Platelet Count 199 thou/uL (130-400); RBC Distribution Width 12.9 % (11.5-14.5); Red Blood Cell (RBC) Count 3.66 mill/uL (4.20-5.40); White Blood Cell (WBC) Count 7.3 thou/uL (4.8-10.8)
[2021-01-14 05:33] LABS: Anion Gap 14 mmol/L (10-20); BUN (Urea Nitrogen) 21 mg/dL (9.8-20.1); Calc. Creatinine Clearance 108 mL/min (70-130); Calcium 9.5 mg/dL (7.8-10.44); Carbon Dioxide 27 mmol/L (23-31); Cardiac Risk 3.1 (Less than 4.5); Chloride 105 mmol/L (98-107); Cholesterol 162 mg/dl (< 200 Desired); Glucose 93 mg/dL (83-110); HDL Cholesterol 53 mg/dL (>60 Neg Risk); LDL Cholesterol, Calculated 94 mg/dL; Potassium 3.6 mmol/L (3.5-5.1); Sodium 142 mmol/L (136-145); Triglycerides 74 mg/dL (Less than 150)
[2021-01-14] MEDS: Hydrochlorothiazide 25 MG TAB PO SCH (10:04)
[2021-01-14] MEDS: Apixaban 5 MG TAB PO SCH ×2 (10:04→22:09)
[2021-01-14] MEDS: Acetaminophen 325 MG TAB PO PRN ×2 (10:09→17:33)
[2021-01-14 14:19] LABS: SARS-CoV-2 PCR by NAA Not Detected (NotDetected)
[2021-01-14] MEDS ORDERED: Meclizine HCl 25 MG TAB PO SCH (17:45)
[2021-01-14] MEDS ORDERED: Lisinopril 20 MG TAB PO SCH (21:00)
[2021-01-14] MEDS ORDERED: Levothyroxine 150 MCG TAB PO SCH (21:00)
[2021-01-14] MEDS: Meclizine HCl 25 MG TAB PO SCH (22:09)
[2021-01-15] MEDS: Acetaminophen 325 MG TAB PO PRN ×2 (02:41→08:23)
[2021-01-15 05:17] LABS: #Eosinphils 0.1 thou/uL (0.0-0.7); #Lymphocytes 2.1 thou/uL (1.20-3.40); #Monocytes 0.8 thou/uL (0.11-0.59); #Neutrophils 7.9 thou/uL (1.40-6.50); %Basophils 0.1 % (0.0-1.0); %Eosinophils 0.6 % (0.0-10.0); %Lymphocytes 19.3 % (21.0-51.0); %Monocytes 7.1 % (0.0-10.0); %Neutrophils 72.9 % (42.0-75.0); Hemoglobin 13.5 g/dL (12.0-16.0); Mean Corpuscular HGB CONC 33.7 g/dL (32.0-36.0); Mean Corpuscular Hemoglobin 33.5 pg (27.0-31.0); Mean Corpuscular Volume 99.2 fL (78.0-98.0); Mean Platelet Volume 9.5 fL (7.4-10.4); Platelet Count 204 thou/uL (130-400); RBC Distribution Width 12.7 % (11.5-14.5); Red Blood Cell (RBC) Count 4.03 mill/uL (4.20-5.40); White Blood Cell (WBC) Count 10.8 thou/uL (4.8-10.8)
[2021-01-15 05:32] LABS: Anion Gap 14 mmol/L (10-20); BUN (Urea Nitrogen) 9 mg/dL (9.8-20.1); Calc. Creatinine Clearance 113 mL/min (70-130); Calcium 9.6 mg/dL (7.8-10.44); Carbon Dioxide 30 mmol/L (23-31); Chloride 98 mmol/L (98-107); Glucose 86 mg/dL (83-110); Potassium 3.1 mmol/L (3.5-5.1); Sodium 139 mmol/L (136-145)
[2021-01-15] MEDS ORDERED: Levothyroxine 150 MCG TAB PO SCH (06:00)
[2021-01-15] MEDS: Meclizine HCl 25 MG TAB PO SCH (06:11)
[2021-01-15] MEDS ORDERED: Potassium Chloride 20 MEQ TAB PO SCH (07:45)
[2021-01-15] MEDS: Hydrochlorothiazide 25 MG TAB PO SCH (08:23)
[2021-01-15] MEDS: Apixaban 5 MG TAB PO SCH (08:23)
[2021-01-15 09:01] VITALS: BP 173/81; TEMP 98.1
== END 2021-01-15 11:05 | disposition home or self-care (01) ==
LOC: ERS 19:59 → 2SW 23:02
PROVIDERS: ADMIT Internal Medicine; ATTEND Internal Medicine
DX: H81.10 Benign paroxysmal vertigo, unspecified ear (principal); E87.6 Hypokalemia; I48.0 Paroxysmal atrial fibrillation; I11.9 Hypertensive heart disease without heart failure; E03.9 Hypothyroidism, unspecified; J45.20 Mild intermittent asthma, uncomplicated; I08.1 Rheumatic disorders of both mitral and tricuspid valves; E66.9 Obesity, unspecified; Z68.32 Body mass index [BMI] 32.0-32.9, adult; Z79.01 Long term (current) use of anticoagulants; Z79.899 Other long term (current) drug therapy; Z20.822 Contact with and (suspected) exposure to COVID-19
CPT/HCPCS: 70450; 70551; 80048 ×2; 80053; 80061; 84443; 85025 ×3; 93005; 93306; 93880; 96374; 97139 ×4; 99285; G0378 ×3; U0003; U0005; 36415; J2405

== ENCOUNTER 2021-01-22 09:13 | Outpatient (CLI) | payer MEDICARE ==
[2021-01-22 10:32] LABS: Hemoglobin 12.1 g/dL (12.0-15.5); Mean Corpuscular HGB CONC 32.2 g/dL (32.0-36.0); Mean Corpuscular Hemoglobin 31.9 pg (27.0-33.0); Mean Corpuscular Volume 99.2 fl (81.6-98.3); Mean Platelet Volume 12.6 fl (7.4-10.4); Platelet Count 210 10x3/uL (150-450); RBC Distribution Width 14.9 % (11.5-14.5); Red Blood Cell (RBC) Count 3.79 10x6/uL (3.90-5.03); White Blood Cell (WBC) Count 6.4 10x3/uL (3.5-10.5)
[2021-01-22 10:39] LABS: PTT 25.5 sec (22.0-33.0)
[2021-01-22 10:42] LABS: Anion Gap 12 mmol/L (10-20); BUN (Urea Nitrogen) 21 mg/dL (9.8-20.1); Calc. Creatinine Clearance 0 mL/min (70-130); Carbon Dioxide 28 mmol/L (23-31); Chloride 106 mmol/L (98-107); Glucose 83 mg/dL (83-110); Sodium 142 mmol/L (136-145)
[2021-01-22 17:22] LABS: SARS-CoV-2 PCR by NAA Not Detected (NotDetected)
== END 2021-01-22 09:14 | disposition home or self-care (01) ==
LOC: LABBT 09:13
PROVIDERS: ATTEND Internal Medicine Nephrology
DX: Z01.812 Encounter for preprocedural laboratory examination (principal); I48.0 Paroxysmal atrial fibrillation; Z20.822 Contact with and (suspected) exposure to COVID-19
CPT/HCPCS: 80048; 85027; 85610; 85730; U0003; U0005

== ENCOUNTER 2021-01-27 06:01 | Day surgery (SDC) | payer MEDICARE ==
[2021-01-21 13:54] VITALS: BMI 31.9
[2021-01-27] MEDS ORDERED: Heparin 10,000 UNITS/ 10 ML VIAL ONE (06:48)
[2021-01-27] MEDS ORDERED: Protamine Sulfate 50 MG/5 ML VIAL ONE ×2 (06:48→13:50)
[2021-01-27] MEDS ORDERED: Heparin 25,000 units/D5W 500 ML ONE (06:48)
[2021-01-27] MEDS ORDERED: Fentanyl 250 MCG/5 ML VIAL ONE (07:10)
[2021-01-27] MEDS ORDERED: Phenylephrine 10 MG/ML VIAL ONE (07:10)
[2021-01-27] MEDS ORDERED: diphenhydrAMINE 50 MG/ML VIAL ONE (07:48)
[2021-01-27] MEDS ORDERED: PROPOFOL 200 MG/20 ML VIAL ONE (07:48)
[2021-01-27] MEDS ORDERED: Glycopyrrolate 0.2 MG/ML 5 ML SYRINGE ONE (07:48)
[2021-01-27] MEDS ORDERED: Ketorolac Tromethamine 30 MG/ML VIAL ONE (07:48)
[2021-01-27] MEDS ORDERED: Lidocaine 1% PF 5 ML VIAL ONE (07:48)
[2021-01-27] MEDS ORDERED: Metoclopramide HCl 10 MG/2 ML VIAL ONE (07:48)
[2021-01-27] MEDS ORDERED: ePHEDrine 50 MG/ML VIAL ONE (07:48)
[2021-01-27] MEDS ORDERED: Rocuronium Bromide 10 MG/ML (10ML VIAL) ONE (07:48)
[2021-01-27] MEDS ORDERED: Dexamethasone 20 MG/5 ML VIAL ONE (07:48)
[2021-01-27] MEDS ORDERED: Ondansetron PF 4 MG/2 ML Vial ONE ×2 (07:48→08:02)
[2021-01-27] MEDS ORDERED: Succinylcholine 200 MG/10 ml SYRINGE FS ONE (07:48)
[2021-01-27] MEDS ORDERED: Furosemide 40 MG TAB PO PRN (07:55)
[2021-01-27] MEDS ORDERED: Ketorolac Tromethamine 30 MG/ML VIAL IVP PRN (07:55)
[2021-01-27] MEDS ORDERED: Potassium Chloride 20 MEQ TAB PO PRN (07:55)
[2021-01-27] MEDS ORDERED: Isoproterenol 0.2 MG/1 ML AMP ONE (09:48)
[2021-01-27] MEDS ORDERED: Sucralfate 1 GM TAB PO SCH (11:30)
== END 2021-01-27 17:04 | disposition home or self-care (01) ==
LOC: CCL 06:01
PROVIDERS: ATTEND Internal Medicine Cardiovascular Disease
PROC: B244ZZ3 Ultrasonography of Right Heart, Intravascular (ICD-10-PCS; principal; 2021-01-27)
PROC: 02583ZZ Destruction of Conduction Mechanism, Percutaneous Approach (ICD-10-PCS; 2021-01-27)
PROC: 02K83ZZ Map Conduction Mechanism, Percutaneous Approach (ICD-10-PCS; 2021-01-27)
PROC: 4A023FZ Measurement of Cardiac Rhythm, Percutaneous Approach (ICD-10-PCS; 2021-01-27)
PROC: 4A0234Z Measurement of Cardiac Electrical Activity, Percutaneous Approach (ICD-10-PCS; 2021-01-27)
DX: I48.0 Paroxysmal atrial fibrillation (principal); I48.4 Atypical atrial flutter; I11.9 Hypertensive heart disease without heart failure; I08.1 Rheumatic disorders of both mitral and tricuspid valves; I87.2 Venous insufficiency (chronic) (peripheral); K44.9 Diaphragmatic hernia without obstruction or gangrene; Z79.01 Long term (current) use of anticoagulants; Z79.899 Other long term (current) drug therapy; Z91.011 Allergy to milk products
CPT/HCPCS: 71045; 85347; 93005; 93613; 93622; 93623; 93656; 93657; 93662; C1732; C1759; J1100; J1200; J1644; J1885; J2370; J2405; J2704; J2720; J2765; J3010; J3490

== ENCOUNTER 2021-11-13 15:10 | Outpatient (CLI) | payer MEDICARE | END 2021-11-13 15:11 | disposition home or self-care (01) | LOC: BICMAMMO 15:10 | PROVIDERS: ATTEND Family Medicine | DX: Z12.31 Encounter for screening mammogram for malignant neoplasm of breast (principal); Z91.89 Other specified personal risk factors, not elsewhere classified | CPT/HCPCS: 77063; 77067 ==

== ENCOUNTER 2021-12-09 13:58 | Outpatient (CLI) | payer MEDICARE | END 2021-12-09 13:59 | disposition home or self-care (01) | LOC: BICRAD 13:58 | PROVIDERS: ATTEND Family Medicine | DX: S43.401A Unspecified sprain of right shoulder joint, initial encounter (principal) ==

== ENCOUNTER 2022-02-05 11:26 | Outpatient (CLI) | payer MEDICARE ==
[2022-02-05 13:10] LABS: Hemoglobin 12.2 g/dL (12.0-15.5); Mean Corpuscular Hemoglobin 31.2 pg (27.0-33.0); Mean Corpuscular Volume 94.6 fl (81.6-98.3); Platelet Count 304 10x3/uL (150-450); RBC Distribution Width 17.5 % (11.5-14.5); Red Blood Cell (RBC) Count 3.91 10x6/uL (3.90-5.03); White Blood Cell (WBC) Count 6.9 10x3/uL (3.5-10.5)
[2022-02-05 13:17] LABS: Bilirubin Neg (Negative); Blood, Urine 10 (Negative); Clarity Slightly Cloudy (Clear); Glucose, Urine (Dipstick) Normal (Negative); Ketone, Urine 50 mg/dL (Negative); Leukocyte 25 (Negative); Nitrite Negative (Negative); Protein, Urine (Dipstick) Negative (Neg-Trace); Urobilinogen Normal mg/dL (Less than 2)
[2022-02-05 13:26] LABS: ALT (SGPT) 22 U/L (8-55); AST (SGOT) 24 U/L (5-34); Albumin 4.2 g/dL (3.4-4.8); Alkaline Phosphatase 116 U/L (40-110); Anion Gap 14 mmol/L (10-20); BUN (Urea Nitrogen) 16 mg/dL (9.8-20.1); Bilirubin, Total 0.3 mg/dL (0.2-1.2); Calc. Creatinine Clearance 0 mL/min (70-130); Calcium 9.5 mg/dL (7.8-10.44); Carbon Dioxide 30 mmol/L (23-31); Chloride 101 mmol/L (98-107); Estimated GFR 60; Globulin 2.7 g/dL (2.4-3.5); Glucose 79 mg/dL (83-110); Protein, Total 6.9 g/dL (5.8-8.1); Sodium 141 mmol/L (136-145)
[2022-02-05 13:30] LABS: PTT 27.5 sec (22.0-33.0); Prothrombin Time 10.8 sec (9.5-12.1)
== END 2022-02-05 11:27 | disposition home or self-care (01) ==
LOC: LABBT 11:26
PROVIDERS: ATTEND Internal Medicine Cardiovascular Disease
DX: Z01.818 Encounter for other preprocedural examination (principal); I48.0 Paroxysmal atrial fibrillation; Z79.01 Long term (current) use of anticoagulants; Z98.890 Other specified postprocedural states; Z86.79 Personal history of other diseases of the circulatory system
CPT/HCPCS: 80053; 81003; 85027; 85610; 85730; 86850; 86900; 86901; 93005; 93010

== ENCOUNTER 2022-02-05 11:30 | Inpatient (IN) | payer MEDICARE ==
[2022-02-05 13:10] LABS: Hemoglobin 12.2 g/dL (12.0-15.5); Mean Corpuscular Hemoglobin 31.2 pg (27.0-33.0); Mean Corpuscular Volume 94.6 fl (81.6-98.3); Platelet Count 304 10x3/uL (150-450); RBC Distribution Width 17.5 % (11.5-14.5); Red Blood Cell (RBC) Count 3.91 10x6/uL (3.90-5.03); White Blood Cell (WBC) Count 6.9 10x3/uL (3.5-10.5)
[2022-02-05 13:17] LABS: Bilirubin Neg (Negative); Blood, Urine 10 (Negative); Clarity Slightly Cloudy (Clear); Glucose, Urine (Dipstick) Normal (Negative); Ketone, Urine 50 mg/dL (Negative); Leukocyte 25 (Negative); Nitrite Negative (Negative); Protein, Urine (Dipstick) Negative (Neg-Trace); Urobilinogen Normal mg/dL (Less than 2)
[2022-02-05 13:26] LABS: ALT (SGPT) 22 U/L (8-55); AST (SGOT) 24 U/L (5-34); Albumin 4.2 g/dL (3.4-4.8); Alkaline Phosphatase 116 U/L (40-110); Anion Gap 14 mmol/L (10-20); BUN (Urea Nitrogen) 16 mg/dL (9.8-20.1); Bilirubin, Total 0.3 mg/dL (0.2-1.2); Calc. Creatinine Clearance 0 mL/min (70-130); Calcium 9.5 mg/dL (7.8-10.44); Carbon Dioxide 30 mmol/L (23-31); Chloride 101 mmol/L (98-107); Estimated GFR 60; Globulin 2.7 g/dL (2.4-3.5); Glucose 79 mg/dL (83-110); Protein, Total 6.9 g/dL (5.8-8.1); Sodium 141 mmol/L (136-145)
[2022-02-05 13:30] LABS: PTT 27.5 sec (22.0-33.0); Prothrombin Time 10.8 sec (9.5-12.1)
[2022-02-10 09:55] VITALS: BMI 32.9
[2022-02-11] MEDS ORDERED: Protamine Sulfate 50 MG/5 ML VIAL ONE (13:44)
[2022-02-11] MEDS ORDERED: Heparin 10,000 UNITS/ 10 ML VIAL ONE (13:44)
[2022-02-11] MEDS ORDERED: CEFAZOLIN 1 GM VIAL ONE (13:44)
[2022-02-11] MEDS ORDERED: FENTANYL 50 MCG/ML 1 ML VIAL ONE (13:50)
[2022-02-11] MEDS ORDERED: Rocuronium Bromide 10 MG/ML (10ML VIAL) ONE (14:31)
[2022-02-11] MEDS ORDERED: PROPOFOL 200 MG/20 ML VIAL ONE (14:31)
[2022-02-11] MEDS ORDERED: Ondansetron PF 4 MG/2 ML Vial ONE (14:31)
[2022-02-11] MEDS ORDERED: Dexamethasone 20 MG/5 ML VIAL ONE (14:31)
[2022-02-11] MEDS ORDERED: Iopamidol 370 76% 100 ML VIAL ONE (15:53)
== END 2022-02-11 19:14 | disposition home or self-care (01) | DRG 229 ==
LOC: SURG A 02-11 10:02
PROVIDERS: ADMIT Internal Medicine Cardiovascular Disease; ATTEND Internal Medicine Cardiovascular Disease
PROC: 02H73DZ Insertion of Intraluminal Device into Left Atrium, Percutaneous Approach (ICD-10-PCS; principal; 2022-02-11)
PROC: 02PA3DZ Removal of Intraluminal Device from Heart, Percutaneous Approach (ICD-10-PCS; 2022-02-11)
PROC: B24BZZ4 Ultrasonography of Heart with Aorta, Transesophageal (ICD-10-PCS; 2022-02-11)
DX: I48.0 Paroxysmal atrial fibrillation (principal); Z53.8 Procedure and treatment not carried out for other reasons; I10 Essential (primary) hypertension; I87.2 Venous insufficiency (chronic) (peripheral); J45.909 Unspecified asthma, uncomplicated; E03.9 Hypothyroidism, unspecified; Z96.642 Presence of left artificial hip joint; Z96.652 Presence of left artificial knee joint; I08.3 Combined rheumatic disorders of mitral, aortic and tricuspid valves; Z79.899 Other long term (current) drug therapy; Z79.52 Long term (current) use of systemic steroids; Z79.51 Long term (current) use of inhaled steroids; Z91.011 Allergy to milk products; Z82.49 Family history of ischemic heart disease and other diseases of the circulatory system; Z87.11 Personal history of peptic ulcer disease; Z90.49 Acquired absence of other specified parts of digestive tract; Z98.890 Other specified postprocedural states
CPT/HCPCS: 33340; 80053; 81003; 85027; 85347; 85610; 85730; 86850; 86900; 86901; 93306; 93312; C1759; C1760; C1769; C1894; J0690; J1644; J2720; J3010; Q9967

== ENCOUNTER 2022-12-25 13:15 | Outpatient (CLI) | payer MEDICARE | END 2022-12-25 13:16 | disposition home or self-care (01) | LOC: BICMAMMO 13:15 | PROVIDERS: ATTEND Family Medicine | DX: Z12.31 Encounter for screening mammogram for malignant neoplasm of breast (principal); Z91.89 Other specified personal risk factors, not elsewhere classified | CPT/HCPCS: 77063; 77067 ==

== ENCOUNTER 2023-11-18 12:42 | Outpatient (CLI) | payer MEDICARE | END 2023-11-18 12:43 | disposition home or self-care (01) | LOC: BICMAMMO 12:42 | PROVIDERS: ATTEND Family Medicine | DX: Z78.0 Asymptomatic menopausal state (principal) | CPT/HCPCS: 77080 ==

== ENCOUNTER 2023-12-29 09:57 | Outpatient (CLI) | payer MEDICARE | END 2023-12-29 09:58 | disposition home or self-care (01) | LOC: BICMAMMO 09:57 | PROVIDERS: ATTEND Family Medicine | DX: Z12.31 Encounter for screening mammogram for malignant neoplasm of breast (principal); Z91.89 Other specified personal risk factors, not elsewhere classified | CPT/HCPCS: 77063; 77067 ==

== ENCOUNTER 2024-09-15 21:49 | Emergency (ER) | payer MEDICARE ==
[~2024-09-15 21:49] MED LIST: Iopamidol-370 76% 500 ML MDV (1 ML CHARGE) ONE
[2024-09-15] MEDS ORDERED: Cefepime 2 GM VIAL ONE (22:13)
[2024-09-15] MEDS ORDERED: Ketorolac Tromethamine 30 MG (1 mL) VIAL ONE (22:13)
[2024-09-15 22:29] LABS: #Basophils 0.03 10x3/uL (0.0-0.2); #Eosinophils 0.03 10x3/uL (0.0-0.7); #Monocytes 1.28 10x3/uL (0.11-0.59); #Neutrophils 11.35 10x3/uL (1.40-6.50); %Basophils 0.2 % (0.0-1.0); %Eosinophils 0.2 % (0.0-10.0); %Lymphocytes 15.0 % (21.0-51.0); %Monocytes 8.5 % (0.0-10.0); %Neutrophils 75.1 % (42.0-75.0); Hematocrit 29.8 % (36.0-47.0); Hemoglobin 9.9 g/dL (12.0-16.0); Mean Corpuscular Hemoglobin 31.8 pg (27.0-31.0); Mean Corpuscular Volume 95.8 fL (78.0-98.0); Platelet Count 476 10x3/uL (130-400); Red Blood Cell (RBC) Count 3.11 mill/uL (4.20-5.40); White Blood Cell (WBC) Count 15.10 10x3/uL (4.8-10.8)
[2024-09-15 22:44] LABS: ALT (SGPT) 21 U/L (Less than 34); AST (SGOT) 36 U/L (11-34); Albumin 2.9 g/dL (3.1-4.5); Alkaline Phosphatase 142 U/L (40-110); Anion Gap 17 mmol/L (10-20); BUN (Urea Nitrogen) 14 mg/dL (9.8-20.1); Bilirubin, Total 0.1 mg/dL (0.3-1.2); Calc. Creatinine Clearance 0 mL/min (70-130); Calcium 8.7 mg/dL (7.8-10.44); Carbon Dioxide 25 mmol/L (23-31); Chloride 100 mmol/L (98-107); Globulin 4.0 g/dL (2.4-3.5); Glucose 117 mg/dL (83-110); Potassium 4.2 mmol/L (3.5-5.1); Sodium 138 mmol/L (136-145)
[2024-09-16] MEDS ORDERED: Vancomycin 1 GM/200 ML (FROZEN) BAG ONE (00:30)
== END 2024-09-16 03:18 | disposition short-term general hospital (02) ==
LOC: ERS 21:49
DX: T88.9XXA Complication of surgical and medical care, unspecified, initial encounter (principal); T84.83XA Hemorrhage due to internal orthopedic prosthetic devices, implants and grafts, initial encounter; I48.91 Unspecified atrial fibrillation; I10 Essential (primary) hypertension
CPT/HCPCS: 73502; 73701; 80053; 83605; 85025; 87040; 96365; 96366; 96367; 96375; 96376; 99285; J0692; J1885; J2270 ×2; J3370; Q9967; 36415

== ENCOUNTER 2024-09-27 09:27 | Outpatient (CLI) | payer MEDICARE | END 2024-09-27 09:28 | disposition home or self-care (01) | LOC: BICRAD 09:27 | PROVIDERS: ATTEND Family Medicine | DX: R06.02 Shortness of breath (principal); I51.7 Cardiomegaly; J94.8 Other specified pleural conditions | CPT/HCPCS: 71046 ==

== ENCOUNTER 2024-11-01 08:36 | Outpatient (CLI) | payer MEDICARE | END 2024-11-01 08:37 | disposition home or self-care (01) | LOC: RAD 08:36 | PROVIDERS: ATTEND Internal Medicine Critical Care Medicine | DX: R06.00 Dyspnea, unspecified (principal); J90 Pleural effusion, not elsewhere classified; K44.9 Diaphragmatic hernia without obstruction or gangrene | CPT/HCPCS: 71046 ==

== ENCOUNTER 2024-12-29 09:52 | Outpatient (CLI) | payer MEDICARE | END 2024-12-29 09:53 | disposition home or self-care (01) | LOC: BICMAMMO 09:52 | PROVIDERS: ATTEND Family Medicine | DX: Z12.31 Encounter for screening mammogram for malignant neoplasm of breast (principal); Z91.89 Other specified personal risk factors, not elsewhere classified | CPT/HCPCS: 77063; 77067 ==